=== PATIENT | female | born 1980 | race Caucasian/White ===

== ENCOUNTER → 2018-01-16 08:29 | Outpatient (CLI) | payer BC, SELFPAY ==
[2018-01-16 10:49] LABS: AST(SGOT) 12 U/L (15-37); Alanine Aminotransfer ALT/SGPT 26 U/L (13-56); Albumin, Serum 3.5 g/dL (3.2-5.0); Alkaline Phosphatase 87 U/L (45-117); Anion Gap 5 (5-15); BUN 12 mg/dL (7-18); BUN/Creat Ratio 16.8 RATIO (10-20); Calcium,Total 8.3 mg/dL (8.5-10.1); Chloride 107 mmol/L (98-107); Cholesterol 158 mg/dL (200); Creatinine, Serum 0.72 mg/dL (0.55-1.02); EST Glomerular Filtration Rate 96 mL/min (>60); Est Glom Filt Rate - Afr Amer 116 mL/min (>60); Globulin 3.5 g/dL (2.2-4.2); Glucose 114 mg/dL (74-106); High Density Lipoprotein 36 mg/dL; Potassium 3.8 mmol/L (3.5-5.1); Sodium Level 140 mmol/L (136-145); Triglycerides 85 mg/dL; Very Low Density Lipoprotein 17 mg/dL (5-40)
[2018-01-17 08:53] LABS: Vitamin B12 534 pg/mL (211-911); Vitamin D,25 Hydroxy 33.6 ng/mL (29.95-100.01)
== END ==
PROVIDERS: Family Provider Family Medicine; PCP Family Medicine; Visit Provider Family Medicine
DX: Z00.00 Encounter for general adult medical examination without abnormal findings (principal); R73.01 Impaired fasting glucose; E55.9 Vitamin D deficiency, unspecified; E53.8 Deficiency of other specified B group vitamins
CPT/HCPCS: 36415; 80053; 80061; 82306; 82607

== ENCOUNTER 2021-07-03 23:33 | Inpatient (IN) | payer BC, SELFPAY ==
[2021-07-03 23:33] VITALS: BP 194/96; PULSE 77; RESP 15; TEMP 37.1; O2SAT 99; BMI 35.5
--- NOTE | 2021-07-04 00:07 | US_ITS ---
STUDY: ABDOMINAL ULTRASOUND - RIGHT UPPER QUADRANT REASON FOR VISIT: Female, 41 years old right upper quadrant abdominal pain TECHNIQUE: Ultrasound evaluation of the right upper quadrant was performed with real-time and static gibbs-scale imaging. TECHNICAL QUALITY: Adequate. COMPARISON: None. FINDINGS: Liver: The liver measures 19.6 cm. There is moderate diffuse homogeneous hyperechogenicity of the liver parenchyma. Normal echotexture. The bile ducts are within normal limits. There is hepatic color flow. The direction of portal flow is hepatopetal. There is no demonstrated mass lesion. Gallbladder: Mild gallbladder distention.. The gallbladder wall measures 3 mm. There is a positive sonographic Ramos''s sign. There is no pericholecystic fluid. Multiple intraluminal stones. Common Bile Duct (C.B.D.): The common bile duct measures 5 mm. Pancreas: Visualized pancreas is normal. There is obscuration of the tail due to overlying bowel gas. There is no pancreatic fluid. Right Kidney: The right kidney measures 12.4 x 5.5 x 4.9 cm. The right cortex measures 1.7 cm. There is no demonstrated renal mass or cyst. Mild hydronephrosis. No nephrolithiasis. US/Gallbladder IMPRESSION: 1. Cholelithiasis with borderline wall thickening and positive sonographic Ramos''s sign but without pericholecystic fluid, suggesting an early acute cholecystitis. 2. Mild right sided hydronephrosis. 3. Nonvisualization of the pancreatic tail due to overlying bowel gas. 4. Fatty infiltration of the liver. Electronically Signed: Chritsopher Zuniga MD at 1:32 EST Tel , Service support ,
--- NOTE | 2021-07-04 00:22 | EDS_ITS ---
HPI HPI - GI History of Present Illness Chief Complaint: Abd Pain Narrative Narrative: 38-year-old female presenting with right upper quadrant pain. This started abruptly prior to arrival. Patient states her last meal was at about 730 and she ate chicken, mashed potatoes with gravy, noodles. She states that her father ate the same exact meal and does not have any symptoms. Patient does have a gallbladder and is concerned this is her gallbladder. She has not had a fever. She does have nausea. She denies abdominal pain elsewhere. No history of kidney stones. Patient is status post hysterectomy and has no concern for . She states that she does have von Willebrand's disease. [facility] Medical History Von Willebrand disease Home Medications No Known/Unobtainable [No Known Home Medications] 10/17/15 [History Last Taken Unknown] Allergy/AdvReac Type Severity Reaction Status Date / Time codeine Allergy Hives Verified 07/03/21 23:42 acetaminophen [From Percocet] AdvReac Other Verified 07/03/21 23:43 morphine AdvReac Other Verified 07/03/21 23:42 oxycodone [From Percocet] AdvReac Other Verified 07/03/21 23:43 Surgical History H/O hysterectomy for benign disease H/O hysterectomy for benign disease History of History of rhinoplasty [place] teeth extracted Social History Smoking Status: Never smoker ROS [facility] ED Constitutional Constitutional ED: Denies fever(s) or sweats ENT ENT ED: Denies rhinorrhea or sore throat Cardiovascular Cardiovascular: Denies chest pain or palpitations Respiratory/Chest Respiratory/Chest: Denies cough, dyspnea or sputum Gastrointestinal Gastrointestinal: Reports abdominal pain and nausea; Denies constipation, diarrhea or vomiting Genitourinary Genitourinary ED: Denies dysuria or hematuria Musculoskeletal Musculoskeletal: Denies arthralgias or myalgias Integumentary Denies abscess or rash Neurologic Neurologic: Denies headache(s) or paresthesias EXAM Physical Exam Const Vital Signs: 07/03/21 23:33 Temperature 98.7 F Temperature Source Temporal Pulse Rate 77 Respiratory Rate 15 Blood Pressure 194/96 H Blood Pressure Mean 128 Pulse Ox 99 Oxygen Delivery Method Room Air Positive obese General Appearance ED: other Appears to be in pain holding her right upper ; Negative for pallor Nutritional Appearance: obese HEENT Reports moist mucous membranes normocephalic and atraumatic Eyes PERRL and EOMs intact bilaterally Cardio regular rate and regular rhythm GI Palpation: tender Ramos's sign Neuro Sensorium / Orientation: alert and oriented to person Psych mental status grossly normal and thought process normal Skin General Skin Exam: Negative for jaundice or pallor MDM MDM MDM Narrative Medical decision making narrative: Patient presented with right upper quadrant pain. Patient refused pain medication because she does not like this. She does appear to be in pain. Patient CBC shows she is a leukocytosis of 13.3. Hemoglobin 15.7 hematocrit 47.3, platelets 314. CMP shows slight hypokalemia at 3.1 as well as a slight increase in her alkaline phosphatase at 119. Urinalysis negative for infection. Right upper quadrant ultrasound shows concern for acute cholecystitis. I did discuss case with Dr. Hyatt who is amenable to admit the patient. Impression: 1. acute cholecystitis Lab Data Attestation: I reviewed the patient's lab results. Labs: Laboratory Results - last 24 hr 07/03/21 07/03/21 07/03/21 23:59 23:59 23:59 WBC 13.3 H RBC 5.21 Hgb 15.7 H Hct 47.3 H MCV 90.8 MCH 30.1 MCHC 33.2 RDW Std Deviation 44.6 H RDW Coeff of Vasquez 13.2 Plt Count 314 MPV 10.8 Immature Gran % (Auto) 0.600 Neut % (Auto) 58.6 Lymph % (Auto) 28.5 [place] % (Auto) 9.3 Eos % (Auto) 2.3 Baso % (Auto) 0.7 Absolute Neuts (auto) 7.8 H Absolute Lymphs (auto) 3.77 Nucleated RBC % 0 Sodium 140 Potassium 3.1 L Chloride 103 Carbon Dioxide 30.0 Anion Gap 7 BUN 14 Creatinine 0.88 Estim Creat Clear Calc 77.17 Est GFR (MDRD) Af Amer 90 Est GFR (MDRD) Non-Af 74 BUN/Creatinine Ratio 15.8 Glucose 139 H Calcium 9.2 Total Bilirubin 0.30 AST 17 ALT 20 Alkaline Phosphatase 119 H Total Protein 7.4 Albumin 3.5 Globulin 3.9 Albumin/Globulin Ratio 0.9 Lipase 236 Urine Color Yellow Urine Clarity Sl. Cloudy Urine pH 7.0 Ur Specific [place] 1.010 Urine Protein 15 H Urine Glucose (UA) Normal Urine Ketones Negative Urine Occult Blood 10 H Urine Nitrite Negative Urine Bilirubin Negative Urine Urobilinogen Normal Ur Leukocyte Esterase Negative Urine RBC 0 SEEN Urine WBC 0-5 SEEN Ur Squamous Epith Cells 0 SEEN Amorphous Sediment 3+ Urine Bacteria 1+ Urine Mucus 0 SEEN Radiography Diagnostic Testing: Clinical Impression(s) from Imaging Studies Gallbladder Ultrasound 07/04/21 00:07 IMPRESSION: 1. Cholelithiasis with borderline wall thickening and positive sonographic Ramos''s sign but without pericholecystic fluid, suggesting an early acute cholecystitis. 2. Mild right sided hydronephrosis. 3. Nonvisualization of the pancreatic tail due to overlying bowel gas. 4. Fatty infiltration of the liver. Electronically Signed: Christopher Zuniga MD at 1:32 EST Tel , Service support , Discharge Plan Triage Chief Complaint: Abd Pain ED Provider: Corky Avalos Dx/Rx/DC Orders Primary Care Provider: Lamberto Wagner
[2021-07-04 00:26] LABS: Absolute Lymphocyte Count 3.77 X10^3/uL (0.83-4.51); Absolute Neutrophil Count 7.8 X10^3/uL (2.0-7.7); Basophil# 0.09 X10^3/uL; Basophil% 0.7 % (0-1); Eosinophils% 2.3 % (0-5); Hematocrit 47.3 % (37-47); Hemoglobin 15.7 g/dL (12.0-15.0); Lymphocyte # 3.77 X10^3/ul (0.83-4.51); Lymphocyte % 28.5 % (19-41); Mean Corp Hgb Conc 33.2 g/dL (32-36); Mean Corpuscular Hgb 30.1 pg (27.0-32.0); Mean Corpuscular Volume 90.8 fL (81-99); Mean Platelet Vol. 10.8 fl (6.2-12.0); Monocyte# 1.23 X10^3/uL; Monocyte% 9.3 % (0-10); NRBC Flagged by Analyzer 0 % (0-5); Neutrophil # 7.78 X10^3/uL (2.7-7.7); Neutrophil % 58.6 % (47-70); Platelet Count 314 K/mm3 (150-450); RBC Distribution Width CV 13.2 % (11.6-14.6); RBC Distribution Width SD 44.6 fl (35.1-43.9); Red Blood Count 5.21 M/mm3 (4.2-5.4); White Blood Count 13.3 K/mm3 (4.4-11.0)
[2021-07-04 00:36] LABS: ALB/GLOB Ratio 0.9 RATIO (0.9-2.4); AST(SGOT) 17 U/L (15-37); Alanine Aminotransfer ALT/SGPT 20 U/L (13-56); Albumin, Serum 3.5 g/dL (3.2-5.0); Alkaline Phosphatase 119 U/L (45-117); Anion Gap 7 (5-15); BUN 14 mg/dL (7-18); BUN/Creat Ratio 15.8 RATIO (10-20); Calcium,Total 9.2 mg/dL (8.5-10.1); Chloride 103 mmol/L (98-107); Creatinine, Serum 0.88 mg/dL (0.55-1.02); EST Glomerular Filtration Rate 74 mL/min (>60); Est Glom Filt Rate - Afr Amer 90 mL/min (>60); Estimated Creatinine Clearance 77.17 ml/min; Globulin 3.9 g/dL (2.2-4.2); Glucose 139 mg/dL (74-106); Lipase 236 U/L (73-393); Mucous, Urine 0 SEEN /hpf (<or=2+); Potassium 3.1 mmol/L (3.5-5.1); Protein, Total 7.4 g/dL (6.4-8.2); Red Blood Cells-Urine 0 SEEN /hpf (0-5); Sodium Level 140 mmol/L (136-145); Squamous Epithelial Cells - UA 0 SEEN /hpf (5-10)
[2021-07-04 00:52] LABS: Color, Urine Yellow (Yellow); Glucose, Dipstick Normal (Normal); Ketone-Dipstick Negative (Negative); Leukocyte Esterase-Dipstick Negative /ul (Negative); Nitrite-Dipstick Negative (Negative); Occult Blood-Urine 10 /ul (Negative); Protein-Dipstick 15 mg/dl (Negative); Urine Bilirubin Dipstick Negative (Negative); Urine Clarity Sl. Cloudy (Clear); Urine Urobilinogen Normal (Normal)
[2021-07-04 01:10] LABS: Amorphous Sediment 3+; Bacteria 1+ /hpf (None Seen); White Blood Cells 0-5 SEEN /hpf (0-5)
[2021-07-04 02:26] VITALS: BP 168/86; PULSE 82; PULSE 84; RESP 17; TEMP 36.9; O2SAT 97
[2021-07-04 02:34] VITALS: BP 146/76
--- NOTE | 2021-07-04 02:43 | ED.RN ---
Patient concerned with staying overnight on her own because of her bleeding disorder and wanted to leave. Discussed with patient and other staff, including charge nurse, and this nurse, and patient will stay.
--- NOTE | 2021-07-04 03:00 | PCS.PANDOC ---
PANDEMIC DOCUMENTATION INITIATED: Date: 03/15/2021 Time: 1900 Emergency documentation initiated 07/04/21 @ 0300
[2021-07-04 03:03] VITALS: BP 157/83; PULSE 78; RESP 16; TEMP 36.8; O2SAT 97
[2021-07-04 03:05] VITALS: BMI 36.8
[2021-07-04] MEDS: Lactated Ringers 1,000 ML 120 ML IV (03:47)
[2021-07-04] MEDS: Potassium Chloride 10mEq/100mL 10 MEQ/100 ML IV.SOLN. 100 MEQ IV BOLUS (07:48)
[2021-07-04 07:59] VITALS: BP 168/82; PULSE 72; RESP 16; TEMP 36.8; O2SAT 99
--- NOTE | 2021-07-04 09:08 | NURSING ---
spoke with [facility] concerning consult
[2021-07-04] MEDS: Potassium Chloride 10mEq/100mL 10 MEQ/100 ML IV.SOLN. 75 MEQ IV BOLUS (09:14)
--- NOTE | 2021-07-04 09:38 | PCM.HP.STD ---
HPI - General General Date of Admission: 07/04/21 HPI Narrative GAYLE PARDO, is a 41 F who presents with severe RUQ abdominal pain to [facility] ED. This came on suddenly yesterday. She also complains of nausea. She denies jaundice. Workup reveals US GB - acute cholecystitis, cholelithiasis Patient refuses any narcotic medications and seen writhing in pain in the ED. Patient with Von Willibrands disease - she states that one of her surgeries had complications of persistent bleeding [facility] Medical History (Updated 07/04/21 @ 09:[address] Isaura Hyatt MD) Acute cholecystitis Von Willebrand disease Home Medications No Known/Unobtainable [No Known Home Medications] 10/17/15 [History Last Taken Unknown] Allergy/AdvReac Type Severity Reaction Status Date / Time codeine Allergy Hives Verified 07/03/21 23:42 acetaminophen [From Percocet] AdvReac Other Verified 07/03/21 23:43 morphine AdvReac Other Verified 07/03/21 23:42 oxycodone [From Percocet] AdvReac Other Verified 07/03/21 23:43 Surgical History H/O hysterectomy for benign disease H/O hysterectomy for benign disease History of History of rhinoplasty [place] teeth extracted Social History Smoking Status: Never smoker ROS Constitutional Constitutional: Denies fever(s) Gastrointestinal Gastrointestinal: Reports abdominal pain; Denies hematochezia Genitourinary Genitourinary: Denies hematuria Musculoskeletal Musculoskeletal: Reports difficulty walking; Denies joint pain Integumentary Integumentary: Denies jaundice Neurologic Neurologic: Denies abnormal gait Hematologic/Lymphatic Hematologic/Lymphatic: Reports easy bleeding and easy bruising Vital Signs Vital Signs Vital Signs: 07/03/21 23:33 07/04/21 02:26 07/04/21 02:34 Temperature 98.7 F 98.4 F Temperature Source Temporal Temporal Pulse Rate 77 84 Respiratory Rate 15 17 Respiratory Effort Respiratory Depth Respiratory Pattern Blood Pressure 194/96 H 168/86 H 146/76 H Blood Pressure Mean 128 113 99 Blood Pressure Source Blood Pressure Position Blood Pressure Location Pulse Ox 99 97 Oxygen Delivery Method Room Air Room Air 07/04/21 02:54 07/04/21 03:03 07/04/21 07:59 Temperature 98.2 F 98.2 F Temperature Source Oral Oral Pulse Rate 78 72 Respiratory Rate 16 16 Respiratory Effort Normal Normal Respiratory Depth Normal Respiratory Pattern Normal Blood Pressure 157/83 H 168/82 H Blood Pressure Mean 107 110 Blood Pressure Source Monitor Monitor Blood Pressure Position Semi-Fowlers Semi-Fowlers Blood Pressure Location Left Arm Right Arm Pulse Ox 97 99 Oxygen Delivery Method Room Air Room Air Weight Weight: 103.4 kg Body Mass Index (BMI) 36.8 Physical Exam Const oriented x3 Resp normal respiratory effort Cardio regular rate GI GI Narrative: abdomen is soft and obese, tender in the RUQ with positive Ramos's Extremity Negative for no clubbing, cyanosis or edema Results Lab / Micro Data Result Diagrams: 07/03/21 23:59 07/03/21 23:59 Labs: Laboratory Results - last 24 hr 07/03/21 23:59: WBC 13.3 H, RBC 5.21, Hgb 15.7 H, Hct 47.3 H, MCV 90.8, MCH 30.1, MCHC 33.2, RDW Std Deviation 44.6 H, RDW Coeff of Vasquez 13.2, Plt Count 314, MPV 10.8, Immature Gran % (Auto) 0.600, Neut % (Auto) 58.6, Lymph % (Auto) 28.5, [place] % (Auto) 9.3, Eos % (Auto) 2.3, Baso % (Auto) 0.7, Absolute Neuts (auto) 7.8 H, Absolute Lymphs (auto) 3.77, Nucleated RBC % 0 07/03/21 23:59: Sodium 140, Potassium 3.1 L, Chloride 103, Carbon Dioxide 30.0, Anion Gap 7, BUN 14, Creatinine 0.88, Estim Creat Clear Calc 77.17, Est GFR (MDRD) Af Amer 90, Est GFR (MDRD) Non-Af 74, BUN/Creatinine Ratio 15.8, Glucose 139 H, Calcium 9.2, Total Bilirubin 0.30, AST 17, ALT 20, Alkaline Phosphatase 119 H, Total Protein 7.4, Albumin 3.5, Globulin 3.9, Albumin/Globulin Ratio 0.9, Lipase 236 07/03/21 23:59: Urine Color Yellow, Urine Clarity Sl. Cloudy, Urine pH 7.0, Ur Specific [place] 1.010, Urine Protein 15 H, Urine Glucose (UA) Normal, Urine Ketones Negative, Urine Occult Blood 10 H, Urine Nitrite Negative, Urine Bilirubin Negative, Urine Urobilinogen Normal, Ur Leukocyte Esterase Negative, Urine RBC 0 SEEN, Urine WBC 0-5 SEEN, Ur Squamous Epith Cells 0 SEEN, Amorphous Sediment 3+, Urine Bacteria 1+, Urine Mucus 0 SEEN Radiology Impression Gallbladder Ultrasound 07/04/21 00:07 IMPRESSION: 1. Cholelithiasis with borderline wall thickening and positive sonographic Ramos''s sign but without pericholecystic fluid, suggesting an early acute cholecystitis. 2. Mild right sided hydronephrosis. 3. Nonvisualization of the pancreatic tail due to overlying bowel gas. 4. Fatty infiltration of the liver. Electronically Signed: Christopher Zuniga MD at 1:32 EST Tel , Service support , Assessment & Plan Assessment/Plan (1) Acute cholecystitis: PLAN: Patient with intractable pain as she does not want to take any narcotics. I have explained to her that toradol is not a narcotic and she can take this. admit for consideration for surgery IV antibiotics, IV antacids, sips of clear liquids - I had planned surgery for today, however, patient with Von Willibrand's disease with history of operative bleeding, will consult hematology but they will not see her until this afternoon
[2021-07-04] MEDS: Potassium Chloride 10mEq/100mL 10 MEQ/100 ML IV.SOLN. 85 MEQ IV BOLUS ×2 (10:38→13:34)
[2021-07-04] MEDS: 0.9% Normal Saline 1,000 ML 125 ML IV ×2 (10:39→17:42)
--- NOTE | 2021-07-04 11:00 | CASEMGMT ---
RNCM Progress Note: In Network Tertiary Hospitals: [facility], [facility], [facility], , [facility], [facility], [place], [place], [place]. Cristiane Kline, GENOCM
--- NOTE | 2021-07-04 11:38 | NURSING ---
pt upset that she needs to be transferred. pt upset about the cost of an ambulance and [address] angulo notified and case management notifed of pt concerns. dr angulo spoke with pt and gave pt option to transfer, or sign out ama. pt and choose to transfer to [facility].
[2021-07-04] MEDS: Ketorolac 30 MG/ML Syringe IV ×3 (11:42→23:54)
--- NOTE | 2021-07-04 13:20 | PN_ITS ---
Progress Note Discussed with hematology, this hospital doesn't have Factor 8, therefore, it would not be safe for patient to have major surgery at this [facility]. I have explained this to the patient and her . Awaiting transfer to [facility].
[2021-07-04 13:53] VITALS: BP 143/81; PULSE 71; RESP 16; TEMP 37.1; O2SAT 98
[2021-07-04 20:00] VITALS: BP 161/83; PULSE 103; RESP 16; TEMP 37; O2SAT 99
[2021-07-05 02:00] VITALS: BP 147/87; PULSE 73; RESP 16; TEMP 36.9; O2SAT 98
[2021-07-05] MEDS: 0.9% Normal Saline 1,000 ML 125 ML IV (05:08)
--- NOTE | 2021-07-05 07:43 | NURSING ---
PT TALKING ON TELEPHONE. OVERHEARD PT SAYING I'M GOING TO BE LEAVING HERE IN A LITTLE BIT
[2021-07-05 07:47] VITALS: BP 170/106; PULSE 77; RESP 18; TEMP 36.8; O2SAT 96
--- NOTE | 2021-07-05 08:40 | NURSING ---
PT IV SITE RFA RED, TENDER - IV DC'D. PT REFUSES IV RESTART @ THIS TIME DUE TO HER SAYING SHE MAY POSSIBLY BE LEAVING AMA. PT STATES SHE HAS SOME PHONE CALLS TO MAKE
--- NOTE | 2021-07-05 08:45 | PCM.PN.SRG ---
Subjective Subjective patient states that her pain is alot less this morning still awaiting transfer to [facility] due to Von Willibrands disease precluding surgery at this hospital Objective Data Objective Data Vital Signs: Vital Signs Temp Pulse Resp BP Pulse Ox 98.2 F 77 18 170/106 H 96 07/05/21 07:47 07/05/21 07:47 07/05/21 07:47 07/05/21 07:47 07/05/21 07:47 Oxygen Delivery Method Room Air Weight: 103.4 kg Body Mass Index (BMI) 36.8 Intake & Output: Intake and Output for Last 24 Hours 07/03/21 07/04/21 07/05/21 23:59 23:59 23:59 Intake Total 2407.25 / 2407.25 1432.71 / 1432.71 Balance 2407.25 / 2407.25 1432.71 / 1432.71 Lab / Micro Data Result Diagrams: 07/03/21 23:59 07/03/21 23:59 Physical Exam Const alert and oriented x3 General Appearance: cooperative Resp normal respiratory effort Effort and Inspection: able to speak in complete sentences GI GI Narrative: abdomen appears benign Assessment & Plan Assessment/Plan (1) Acute cholecystitis: PLAN: patient may have passed stone, though LFTs were not that elevated, versus the IV antibiotics has helped she is awaiting transfer to [facility]
--- NOTE | 2021-07-05 08:48 | NURSING ---
PT CALLED THIS NURSE INTO HER ROOM TO SPEAK WITH WYATT - HEAD OF HEMATOLOGY DEPARTMENT @ [facility] - WHOM SHE HAD CALLED. WYATT STATED PT COULD BE GIVEN DESMOPRESSIN IF FACTOR 8 UNAVAILABLE IF NECESSARY FOR SURGERY. I SPOKE WITH WYATT & TOLD HER THE PHYSICIAN THERE WOULD NEED TO SPEAK TO DR RIOS ABOUT THIS. WYATT STATES WILL HAVE PHYSICIAN CALLED [facility] & SPEAK WITH DR RIOS.
--- NOTE | 2021-07-05 12:05 | NURSING ---
RECEIVED CALL FROM DR RIOS WITH UPDATE. STATES SHE TOLD THE PT SHE DOES NOT FEEL COMFORTABLE PERFORMING THE PROCEDURE HERE. MS WILL SPEAK WITH DR ZARATE (BLEND TECHNICIAN TODAY) & SEE WHAT HIS THOUGHTS ARE. I TOLD THE PT THIS INFORMATION. PT ANGRY, STATING SHE IS LEAVING AMA. STATES SHE SPOKE WITH [facility]AT[facility] DEPART[facility] & THEY STATED THEY WOULD MAKE THEIR ER AWARE THAT SHE IS COMING THERE TODAY.
--- NOTE | 2021-07-05 12:23 | NURSING ---
PT STATES WILL SIGN AMA PAPER. ASKS WHEN WILL THE OTHER SURGEON BE IN TO SEE ME, I EXPLAINED THAT I DID NOT KNOW, WOULD DEPEND ON HIS SCHEDULE, ETC. PT STATES WELL, HE PROBABLY WON'T CARE EITHER. I EXPLAINED @ THIS TIME OF DAY, EVEN AFTER HE REVIEWED HER CHART, PROBABLY WOULD NOT BE ABLE TO GET ON THE SURGERY SCHEDULE TODAY. PT STATES THEN I WILL JUST SIT HERE FOR ANOTHER SAY WITH NOTHING BEING DONE. I'M TIRED OF WAITING. I'M LEAVING. DR RIOS MADE AWARE OF SAME.
== END 2021-07-05 12:16 | disposition left against medical advice (07) | DRG 445 ==
LOC: ED 07-04 00:20 → MS3 07-04 02:09
PROVIDERS: Admitting Provider Surgery; Emergency Provider Student in an Organized Health Care Education/Training Program; PCP Family Medicine; Visit Provider Surgery
DX: K80.00 Calculus of gallbladder with acute cholecystitis without obstruction (principal); D68.0 Von Willebrand disease; E66.9 Obesity, unspecified; Z68.36 Body mass index [BMI] 36.0-36.9, adult
CPT/HCPCS: 76705; 80053; 81001; 83690; 85025; 99283; J7030; J7040; J7120; A4216

== ENCOUNTER → 2022-08-03 | Outpatient (CLI) | payer BC, SELFPAY ==
[2022-08-03 10:07] LABS: Hematocrit 49.1 % (37-47); Hemoglobin 15.8 g/dL (12.0-15.0); Mean Corp Hgb Conc 32.2 g/dL (32-36); Mean Corpuscular Hgb 30.1 pg (27.0-32.0); Mean Corpuscular Volume 93.5 fL (81-99); Mean Platelet Vol. 11.5 fl (6.2-12.0); Platelet Count 296 K/mm3 (150-450); RBC Distribution Width CV 13.6 % (11.6-14.6); Red Blood Count 5.25 M/mm3 (4.2-5.4); White Blood Count 9.5 K/mm3 (4.4-11.0)
[2022-08-03 10:36] LABS: Anion Gap 5 (5-15); BUN 13 mg/dL (7-18); Calcium,Total 9.1 mg/dL (8.5-10.1); Chloride 107 mmol/L (98-107); Cholesterol 191 mg/dL (200); Creatinine, Serum 0.69 mg/dL (0.55-1.02); EST Glomerular Filtration Rate 99 mL/min (>60); Est Glom Filt Rate - Afr Amer 119 mL/min (>60); Glucose 119 mg/dL (74-106); High Density Lipoprotein 45 mg/dL; Potassium 3.9 mmol/L (3.5-5.1); Sodium Level 141 mmol/L (136-145); Triglycerides 112 mg/dL; Very Low Density Lipoprotein 22 mg/dL (5-40); Vitamin B12 407 pg/mL (211-911)
== END | disposition home or self-care (01) ==
LOC: MTLAB 07:31
PROVIDERS: PCP Family Medicine; Referring Provider Family Medicine; Visit Provider Family Medicine
DX: Z13.1 Encounter for screening for diabetes mellitus (principal); E53.8 Deficiency of other specified B group vitamins; E55.9 Vitamin D deficiency, unspecified; Z13.220 Encounter for screening for lipoid disorders
CPT/HCPCS: 36415; 80048; 80061; 82306; 82607; 85027

== ENCOUNTER → 2022-08-12 | Outpatient (CLI) | payer BC, SELFPAY ==
[2022-08-12 12:57] LABS: Red Blood Cells-Urine 0 SEEN /hpf (0-5); White Blood Cells 0 SEEN /hpf (0-5)
[2022-08-12 15:18] LABS: Absolute Lymphocyte Count 2.05 X10^3/uL (0.83-4.51); Absolute Neutrophil Count 4.8 X10^3/uL (2.0-7.7); Basophil# 0.07 X10^3/uL; Basophil% 0.9 % (0-1); Eosinophil# 0.17 X10^3/uL; Eosinophils% 2.2 % (0-5); Hematocrit 47.5 % (37-47); Hemoglobin 15.3 g/dL (12.0-15.0); Lymphocyte # 2.05 X10^3/ul (0.83-4.51); Lymphocyte % 26.3 % (19-41); Mean Corp Hgb Conc 32.2 g/dL (32-36); Mean Corpuscular Hgb 29.9 pg (27.0-32.0); Mean Platelet Vol. 11.6 fl (6.2-12.0); Monocyte% 7.7 % (0-10); NRBC Flagged by Analyzer 0 % (0-5); Neutrophil # 4.84 X10^3/uL (2.7-7.7); Neutrophil % 62.1 % (47-70); Platelet Count 302 K/mm3 (150-450); RBC Distribution Width CV 13.8 % (11.6-14.6); RBC Distribution Width SD 47.1 fl (35.1-43.9); Red Blood Count 5.11 M/mm3 (4.2-5.4); White Blood Count 7.8 K/mm3 (4.4-11.0)
[2022-08-12 15:31] LABS: Glucose, Dipstick Normal (Normal); Ketone-Dipstick 5 mg/dl (Negative); Leukocyte Esterase-Dipstick Negative /ul (Negative); Nitrite-Dipstick Negative (Negative); Occult Blood-Urine 10 /ul (Negative); Protein-Dipstick Negative (Negative); Specific Gravity, Urine 1.025 (1.002-1.030); Urine Bilirubin Dipstick Negative (Negative); Urine Urobilinogen Normal (Normal)
[2022-08-12 15:49] LABS: AST(SGOT) 8 U/L (15-37); Alanine Aminotransfer ALT/SGPT 23 U/L (13-56); Albumin, Serum 3.5 g/dL (3.2-5.0); Alkaline Phosphatase 81 U/L (45-117); Bilirubin, Direct 0.13 mg/dL (0.00-0.30); Globulin 3.2 g/dL (2.2-4.2); Protein, Total 6.7 g/dL (6.4-8.2)
[2022-08-12 15:52] LABS: Color, Urine Yellow (Yellow); Urine Clarity Clear (Clear)
[2022-08-12 16:13] LABS: Bacteria RARE /hpf (None Seen); Mucous, Urine RARE /hpf (<or=2+); Squamous Epithelial Cells - UA 0-5 SEEN /hpf (5-10)
[2022-08-15 22:57] LABS: Erythropoietin 6.1 mIU/mL (2.6-18.5)
== END | disposition home or self-care (01) ==
LOC: MTLAB 12:47
PROVIDERS: PCP Family Medicine; Referring Provider Family Medicine; Visit Provider Family Medicine
DX: D58.2 Other hemoglobinopathies (principal)
CPT/HCPCS: 36415; 80076; 81001; 82668; 85025

== ENCOUNTER 2025-07-26 13:38 | Emergency (ER) | payer BC, SELFPAY ==
[2025-07-26 13:38] VITALS: PULSE 81; RESP 16; TEMP 36.9; O2SAT 98; BMI 34.8
--- NOTE | 2025-07-26 14:08 | CT_ITS ---
EXAM: CT Abdomen and Pelvis With Intravenous Contrast CLINICAL INDICATION: RIGHT LOWER QUADRANT ABDOMINAL PAIN. TECHNIQUE: Axial computed tomography images of the abdomen and pelvis with intravenous contrast. This CT exam was performed using one or more of the following dose reduction techniques: automated exposure control, adjustment of the mA and/or kV according to patient size, and/or use of iterative reconstruction technique. CONTRAST: 100 cc Omnipaque [id number] RADIATION DOSE: CTDIvol = 22 mGy, DLP = 1214 mGy-cm COMPARISON: No relevant prior studies available. FINDINGS: LUNG BASES: Unremarkable. No mass. No consolidation. MEDIASTINUM: Small esophageal hiatal hernia. ABDOMEN: LIVER: Fatty infiltration of the liver. GALLBLADDER AND BILE DUCTS: Gallbladder is surgically absent. No ductal dilation. PANCREAS: Unremarkable. No mass. No ductal dilation. SPLEEN: Unremarkable. No splenomegaly. ADRENALS: Unremarkable. No mass. KIDNEYS AND URETERS: Unremarkable. No stones within either kidney. No hydronephrosis. STOMACH AND BOWEL: Unremarkable. No obstruction. No mucosal thickening. PELVIS: APPENDIX: No findings to suggest acute appendicitis. BLADDER: Unremarkable. No mass. REPRODUCTIVE: Unremarkable as visualized. ABDOMEN and PELVIS: INTRAPERITONEAL SPACE: Unremarkable. No free air. No significant fluid collection. BONES/JOINTS: No acute fracture. No dislocation. SOFT TISSUES: Umbilical hernia containing fat. Left-sided lower abdomen ventral hernia containing fat. VASCULATURE: Unremarkable. No abdominal aortic aneurysm. LYMPH NODES: Unremarkable. No enlarged lymph nodes. CT/Abdomen/Pelvis W IV Cont ONLY IMPRESSION: 1. Small esophageal hiatal hernia. 2. Umbilical hernia containing fat. 3. Left-sided lower abdomen ventral hernia containing fat. 4. No obstructive uropathy. Reading Location: [id number]
--- OUTSIDE RECORDS SUMMARY | 2025-07-26 14:08 | XMS RPT_ITS | CCD ---
Author Organization [facility] CliniSyil Care Team Providers Care Developmental Mathematics Professor Name Role Phone RAGHUNATHAN, ROXANN Unavailable Unavailable PHYSICIAN, NONE Unavailable Unavailable RAGHUNATHAN, ROXANN Unavailable Unavailable PHYSICIAN, NONE Unavailable Unavailable RAGHUNATHAN, ROXANN Unavailable Unavailable PHYSICIAN, NONE Unavailable Unavailable Velma Mohan Primary Care Provider Michael Wagner MD Primary Care Provider Tania Scherer MD Unavailable Unavailable Dangelo Brooks MD Unavailable Lamberto Wagner Attending Unavailable Lamberto Wagner Referring Unavailable Lamberto Wagner Primary Care Unavailable Lamberto Wagner Attending Unavailable Lamberto Wagner Referring Unavailable Lamberto Wagner Primary Care Unavailable Michael Wagner MD Primary Care Provider Tania Scherer MD Unavailable Dangelo Brooks MD Unavailable Michael Wagner MD Primary Care Provider Tania Scherer MD Unavailable Dangelo Brooks MD Unavailable MICHAEL WAGNER Referring UnavailIMCHAEL Chowdhury Primary Care Unavailsherrie e DANGELO BROOKS Attending Un available MICHAEL WAGNER Primary Care Unavailabl e IVETT DO Attending Unavailable DANGELO BROOKS Referring Un available MICHAEL WAGNER Primary Care Unavailsherrie e DANGELO BROOKS Referring Un available DANGELO BROOKS Attending Un available Allergies Allergy Classification Reported Allergen(s) Allergy Type Date of Onset Reaction(s) Facility (10 sources) Codeine Drug Allergy 05-14-2008 [facility] (8 sources) Ibuprofen Drug Allergy 05-14-[address] [facility] (3 sources) Acetaminophen Drug Allergy 07-03-2021 Other [facility] (8 sources) Morphine Drug Allergy 07-03-2021 Other [facility] (8 sources) oxyCODONE Drug Allergy 07-03-2021 Other [facility] (1 source) Acetaminophen Drug Allergy 07-03-2021 [facility] (1 source) Codeine Drug Allergy 07-03-2021 [facility] (1 source) Morphine Drug Allergy 07-03-2021 [facility] (1 source) oxyCODONE Drug Allergy 07-03-2021 [facility] (5 sources) Acetaminophen Drug Allergy 07-03-2021 [facility] Medications Current Medications Medication Drug Class(es) Dates Sig (Normalized) Sig (Original) tranexamic acid 650 mg oral tablet (5 sources) Antifibrinolytic Agent Start: 01-09-2023 take 2 tablets by mouth every eight hours as needed tranexamic acid 650 MG tablet Take 2 tablets by mouth every 8 hours as needed. Take 2 pills if bleeding, can continue every 8 hours up to 2 days (in total 12 pills) 60 tablet 3 01/09/2023 Active Completed/Discontinued Medications Medication Drug Class(es) Dates Sig (Normalized) Sig (Original) acetaminophen 325 mg oral tablet (1 source) Start: 05-14-2008 acetaminophen(TYL ENOL 325 MG TAB) as necessary 0 05/14/2008 Active Comment on above: as necessary 12 hr guaiFENesin 600 mg extended release oral tablet (1 source) Start: 05-21-2008 guaifenesin(MUCIN EX 600 MG TAB) Indications: Von Willebrand's disease (HCC) Take one(1) tablet twice daily. 0 05/21/2008 Active Comment on above: Take one(1) tablet t wice daily. Problems Active Problems Problem Classification Problem Date Documented Da te Episodic/Chronic Coagulation and hemorrhagic disorders (13 sources) von Willebrand disorder; Translations: [Von Willebrand disease] Onset: 05-21-2008 05-21-2008 Chronic Coagulation and hemorrhagic disorders (10 sources) Bleeds easily; Translations: [Hemorrhagic condition, unspecified] Onset: 01-25-2022 Episodic Other gastrointestinal disorders (1 source) Hemorrhagic diarrhea ; Translations: [Diarrhea, unspecified] Episodic Other nutritional; endocrine; and metabolic disorders (6 sources) Obese class I; Translations: [Obesity, unspecified] Onset: 07-20-2021 07-20-2021 Chronic Unclassified (1 source) Von willebrand disease, type 1; Translations: [Von willebrand disease, type 1] Onset: 02-03-2025 Unclassified (1 source) Von Willebrand disease, unspecified; Translations: [Von Willebrand disease, unspecified] Onset: 02-03-2025 Past or Other Problems Problem Classification Problem Date Documented Da te Episodic/Chronic Biliary tract disease (8 sources) Acute cholecystitis; Translations: [Acute cholecystitis] Onset: 07-05-2021 07-05-2021 Episodic Mood disorders (6 sources) Mood disorders Onset: 12-30-2021 Resolved: 02-03-2025 12-30-2021 Unclassified (1 source) Von willebrand disease, type 1; Translations: [Von willebrand disease, type 1] Onset: 04-11-2025 Unclassified (1 source) Von Willebrand disease, unspecified; Translations: [Von Willebrand disease, unspecified] Onset: 02-03-2025 Results Test Name Value Interpretation Reference Range Facility MISCELLANEOUS SENDOUTon 03-31 Miscellaneous Test Name Comprehensive Bleeding Disorder Panel (NGS with reflex to aCGH) Normal [facility] Comment on above: Order Comment: Added to specimen from 05/17/2024. Haritha from reference lab stated she spoke with provider who approved this test to be added to earlier specimen. Testing performed by [employer] [address] [address] Performed By: #### I [id number] #### [facility] (DEFAULT) [address] [place] [address] Miscellaneous Test Result SEE SCANNED RESULTS Normal [facility] Comment on above: Order Comment: Added to specimen from 05/17/2024. Haritha from reference lab stated she spoke with provider who approved this test to be added to earlier specimen. Testing performed by [facility] [address] [place] [id number] Result Comment: This is an appended report. These results have been appended to a previously preliminary verified report. Performed By: #### I [id number] #### [facility] (DEFAULT) [address] [place] [id number] REQUEST FOR [facility] SENDOUT Ordered By: Dawn Elkins on 04-11-2025 [facility] VWDB-SPECIAL COAGOrdered By: Nathanael Alexander on 02-04-2025 Coagulation factor VIII activity actual/normal Coag (PPP) [Relative time] 94 % [facility] Interpretation and review of laboratory results Normal [facility] Von Willebrand Factor GP1bM Activity 71 [facility] Comment on above: This test was developed and its performance characteristics determined by the [facility] at [facility]. It has not been cleared or approved by the FDA. The laboratory is regulated under CLIA as qualified to perform high-complexity testing. This test is used for clinical purposes. It should not be regarded as investigation or for research. vWf Ag actual/normal IA (PPP) [Relative mass conc] 70 % 50 - 180 % [facility] - Coagulationon 0 02-03-2025 aPTT Coag (PPP) [Time] 30.4 s [facility] No Panel Informationon 02-03 Interpretation and review of laboratory results Normal [facility] VWDB-ROUTINE COAGon 02-04-20 25 aPTT Coag (Bld) [Time] 30.4 s Normal 24.0-34.3 [facility] Comment on above: Performed By: #### L [id number] #### [facility] (DEFAULT) [address] [place] [id number] VWDB-SPECIAL COAGon 02-04-20 25 Factor VIII Activity 94 % Activity Normal 50-200 O [facility] Comment on above: Performed By: #### L [id number] #### [facility] (DEFAULT) [address] [place] [address] Von Willebrand Factor Antigen 70 % Normal 50-180 [facility] Comment on above: Performed By: #### L [id number] #### [facility] (DEFAULT) [address] [place] [address] Von Willebrand Factor GP1bM Activity 71 % Activity Normal 50-203 [facility] Comment on above: Result Comment: This test was developed and its performance characteristics determined by the [facility] at [facility]. It has not been cleared or approved by the FDA. The laboratory is regulated under CLIA as qualified to perform high-complexity testing. This test is used for clinical purposes. It should not be regarded as investigation or for research. Performed By: #### L [id number] #### [facility] (DEFAULT) [address] [place] [address] MISCELLANEOUS SENDOUTon 01-28 Miscellaneous Test Name VWD Type 2N Profile [facility] Miscellaneous Test Result SEE SCANNED RESULTS [facility] Testing performed by [employer]ing[facility] [address] [place], [place] [id number] [facility] MISCELLANEOUS SENDOUT BILLIN Vlad 02-08-2023 [facility] PLATELET FUNCTION TESTOrdere d By: Tim Farah on 01-09-2023 Interpretation and review of laboratory results Abnormal [facility] Platelet function (closure time) collagen+ADP induced (Bld) [Time] 115 High [facility] Platelet function (closure time) collagen+EPINEPHrine induced (Bld) [Time] 161 [facility] Platelet Function Interpretation The combination of an abnormal Collagen/ADP result in the presence of a normal Collagen/Epinephrin e value has not been well described. Clinical correlation is recommended. [facility] REQUEST FOR MISC LAB SENDOUT Ordered By: Aparna Kirkland on 01-09-2023 [facility] Erythropoietinon 08-16-2022 ERYTHROPOIETIN 6.1 mIU/mL Normal 2.6-18.5 [facility] Comment on above: Order Comment: Order Date: 08/12/22 Order Info: [id number] - MASON Result Comment: waygum UniCel DxI 800 Immunoassay System Values obtained with different assay methods or kits cannot be used interchangeably. Results cannot be interpreted as absolute evidence of the presence or absence of malignant disease. Performed at: [address] [id number] Sprinkler Worker: Raj Haq PhD, Phone: [phone] Performed By: #### L 400.0001, L100.0100, L500.3400, L3100.1350 #### [facility] [address] [place], [address] Absolute lymphocyte countOrd ered By: Dr. Wagner on 08-12-2022 Lymphocytes Auto (Unsp spec) [#/Vol] 2.05 10*3/uL 0.83-4.51 [facility] Basophil percentageOrdered B y: Dr. Wagner on 08-12-2022 Basophil percentage 0 SEEN /hpf 0-5 [facility] Basophils/100 WBC (Bld) 0.9 % 0-1 [facility] Bilirubin [Mass/Vol] 0.40 mg/dL 0.20-1.00 [facility] Comment on above: For patients on eltr ombopag therapy, use of Dimension [place]anza TBIL is not recommended. Eosinophils/100 WBC (Bld) 2.2 % 0-5 [facility] Neutrophils (Bld) [#/Vol] 4.8 10*3/uL 2.0-7.7 [facility] Neutrophils/100 WBC (Bld) 62.1 % 47-70 [facility] Protein [Mass/Vol] 6.7 g/dL 6.4-8.2 [facility] WBC (Bld) [#/Vol] 7.8 10*3/uL 4.4-11.0 [facility] Bilirubin Test strip Ql (U)O rdered By: Dr. Wagner on 08-12-2022 Bilirubin Ql (U) Negative Negative [facility] Blood erythrocytes count (nu mber/volume)Ordered By: Dr. Wagner on 08-12-2022 RBC (Bld) [#/Vol] 5.11 10*6/uL 4.2-5.4 [facility] Blood hemoglobin measurement (mass/volume)Ordered By: Dr. Wagner on 08-12-2022 Hemoglobin (Bld) [Mass/Vol] 15.3 g/dL 12.0-15.0 [facility] Blood lymphocytes/100 leukoc ytesOrdered By: Dr. Wagner on 08-12-2022 Lymphocytes/100 WBC (Bld) 26.3 % 19-41 [facility] Blood monocytes/100 leukocyt esOrdered By: Dr. Wagner on 08-12-2022 Monocytes/100 WBC (Bld) 7.7 % 0-10 [facility] Blood platelet mean volumeOr dered By: Dr. Wagner on 08-12-2022 Platelet mean volume (Bld) [Entitic vol] 11.6 fL 6.2-12.0 [facility] CBC W/Diff, Automatedon 07-31 Absolute Lymph 2.05 X10 3/uL Normal 0.83-4.51 [facility] Comment on above: Order Comment: Order Date: 08/12/22 Order Info: [id number] - CBCD Performed By: #### L 400.0001, L100.0100, L500.3400, L3100.1350 #### [facility] [address] [facility] [address] [place], [place], [id number] [phone] Absolute Neut 4.8 X10 3/uL Normal 2.0-7.7 [facility] Comment on above: Order Comment: Order Date: 08/12/22 Order Info: 0184-1 - CBCD Performed By: #### L 400.0001, L100.0100, L500.3400, L3100.1350 #### [facility] [address] [place], [address] Basophils/100 WBC (Bld) 0.9 % Normal 0-1 [facility] Comment on above: Order Comment: Order Date: 08/12/22 Order Info: 0184-1 - CBCD Performed By: #### L 400.0001, L100.0100, L500.3400, L3100.1350 #### [facility] [address] [place], [address] Eosinophils/100 WBC (Bld) 2.2 % Normal 0-5 [facility] Comment on above: Order Comment: Order Date: 08/12/22 Order Info: 0184-1 - CBCD Performed By: #### L 400.0001, L100.0100, L500.3400, L3100.1350 #### [facility] [address] [place], [address] Erythrocyte distribution width (RBC) [Ratio] 13.8 % Normal 11.6-14.6 [facility] Comment on above: Order Comment: Order Date: 08/12/22 Order Info: 0184-1 - CBCD Performed By: #### L 400.0001, L100.0100, L500.3400, L3100.1350 #### [facility] [address] [place], [address] Hematocrit (Bld) [Volume fraction] 47.5 % High 37-47 [facility] Comment on above: Order Comment: Order Date: 08/12/22 Order Info: 0184-1 - CBCD Performed By: #### L 400.0001, L100.0100, L500.3400, L3100.1350 #### [facility] [address] [place], [address] Hemoglobin (Bld) [Mass/Vol] 15.3 g/dL High 12.0-15.0 [facility] Comment on above: Order Comment: Order Date: 08/12/22 Order Info: 0184-1 - CBCD Performed By: #### L 400.0001, L100.0100, L500.3400, L3100.1350 #### [facility] [address] [place], [address] IG% 0.800 Normal 0.0-0.9 [facility] Comment on above: Order Comment: Order Date: 08/12/22 Order Info: 0184-1 - CBCD Result Comment: IG% - Immature Granulocytes (promyelocytes, myelocytes and metamyelocytes) > 1% indicates that a LEFT SHIFT is Present. Performed By: #### L 400.0001, L100.0100, L500.3400, L3100.1350 #### [facility] [address] [place], [address] Lymphocytes/100 WBC (Bld) 26.3 % Normal 19-41 [facility] Comment on above: Order Comment: Order Date: 08/12/22 Order Info: 0184-1 - CBCD Performed By: #### L 400.0001, L100.0100, L500.3400, L3100.1350 #### [facility] [address] [place], [address] MCH (RBC) [Entitic mass] 29.9 pg Normal 27.0-32.0 [facility] Comment on above: Order Comment: Order Date: 08/12/22 Order Info: 0184-1 - CBCD Performed By: #### L 400.0001, L100.0100, L500.3400, L3100.1350 #### [facility] [address] [place], [address] MCHC (RBC) [Mass/Vol] 32.2 g/dL Normal 32-36 [facility] Comment on above: Order Comment: Order Date: 08/12/22 Order Info: 0184-1 - CBCD Performed By: #### L 400.0001, L100.0100, L500.3400, L3100.1350 #### [facility] [address] [place], [address] MCV (RBC) [Entitic vol] 93.0 fL Normal 81-99 [facility] Comment on above: Order Comment: Order Date: 08/12/22 Order Info: 0184-1 - CBCD Performed By: #### L 400.0001, L100.0100, L500.3400, L3100.1350 #### [facility] [address] [place], [address] Monocytes/100 WBC (Bld) 7.7 % Normal 0-10 [facility] Comment on above: Order Comment: Order Date: 08/12/22 Order Info: 0184-1 - CBCD Performed By: #### L 400.0001, L100.0100, L500.3400, L3100.1350 #### [facility] [address] [place], [address] Neutrophils/100 WBC (Bld) 62.1 % Normal 47-70 [facility] Comment on above: Order Comment: Order Date: 08/12/22 Order Info: 0184-1 - CBCD Performed By: #### L 400.0001, L100.0100, L500.3400, L3100.1350 #### [facility] [address] [place], [address] Nucleated RBC (Bld) [#/Vol] 0 10*3/uL Normal 0-5 [facility] Comment on above: Order Comment: Order Date: 08/12/22 Order Info: 0184-1 - CBCD Performed By: #### L 400.0001, L100.0100, L500.3400, L3100.1350 #### [facility] [address] [place], [address] Platelet mean volume (Bld) [Entitic vol] 11.6 fL Normal 6.2-12.0 [facility] Comment on above: Order Comment: Order Date: 08/12/22 Order Info: 0184-1 - CBCD Performed By: #### L 400.0001, L100.0100, L500.3400, L3100.1350 #### [facility] [address] [place], [address] Platelets (Bld) [#/Vol] 302 10*3/uL Normal 150-450 [facility] Comment on above: Order Comment: Order Date: 08/12/22 Order Info: 0184-1 - CBCD Performed By: #### L 400.0001, L100.0100, L500.3400, L3100.1350 #### [facility] [address] [place], [address] RBC (Bld) [#/Vol] 5.11 10*6/uL Normal 4.2-5.4 [facility] Comment on above: Order Comment: Order Date: 08/12/22 Order Info: 0184-1 - CBCD Performed By: #### L 400.0001, L100.0100, L500.3400, L3100.1350 #### [facility] [address] [place], [address] RDW SD 47.1 fl High 35.1-43.9 [facility] Comment on above: Order Comment: Order Date: 08/12/22 Order Info: 0184-1 - CBCD Performed By: #### L 400.0001, L100.0100, L500.3400, L3100.1350 #### [facility] [address] [place], [address] WBC (Bld) [#/Vol] 7.8 10*3/uL Normal 4.4-11.0 [facility] Comment on above: Order Comment: Order Date: 08/12/22 Order Info: 0184-1 - CBCD Performed By: #### L 400.0001, L100.0100, L500.3400, L3100.1350 #### [facility] [address] [place], [address] Determination of erythrocyte mean corpuscular volume (MCV)Ordered By: Dr. Wagner on 08-12-2022 MCV (RBC) [Entitic vol] 93.0 fL 81-99 [facility] Direct bilirubinOrdered By: Dr. Wagner on 08-12-2022 Bilirubin.direct [Mass/Vol] 0.13 mg/dL 0.00-0.30 [facility] Hematocrit Auto (Bld) [Volum e fraction]Ordered By: Dr. Wagner on 08-12-2022 Hematocrit (Bld) [Volume fraction] 47.5 % 37-47 [facility] Ketones Test strip Ql (U)Ord ered By: Dr. Wagner on 08-12-2022 Ketones Ql (U) 5 mg/dl Negative [facility] - Chemistry and C hemistry - challengeOrdered By: Dr. Wagner on 08-12-2022 ALP [Catalytic activity/Vol] 81 U/L 45-117 [facility] ALT [Catalytic activity/Vol] 23 U/L 13-56 [facility] Globulin (S) [Mass/Vol] 3.2 g/dL 2.2-4.2 [facility] Laboratory - Hematology and Cell countsOrdered By: Dr. Wagner on 08-12-2022 Erythrocyte distribution width (RBC) [Entitic vol] 47.1 fL 35.1-43.9 [facility] Erythrocyte distribution width (RBC) [Ratio] 13.8 % 11.6-14.6 [facility] Immature granulocytes/100 WBC (Bld) 0.800 % 0.0-0.9 [facility] Comment on above: IG% - Immature Granu locytes (promyelocytes, myelocytes and metamyelocytes) > 1% indicates that a LEFT SHIFT is Present. MCH (RBC) [Entitic mass] 29.9 pg 27.0-32.0 [facility] Nucleated RBC/100 WBC (Bld) [Ratio] 0 % 0-5 [facility] Liver Profileon 08-12-2022 Albumin [Mass/Vol] 3.5 g/dL Normal 3.2-5.0 [facility] Comment on above: Order Comment: Order Date: 08/12/22 Order Info: 0788-1 - LIVER Performed By: #### L 400.0001, L100.0100, L500.3400, L3100.1350 #### [facility] [address] [place], [address] ALK P 81 U/L Normal 45-117 [facility] Comment on above: Order Comment: Order Date: 08/12/22 Order Info: 0788-1 - LIVER Performed By: #### L 400.0001, L100.0100, L500.3400, L3100.1350 #### [facility] [address] [place], [address] ALT [Catalytic activity/Vol] 23 U/L Normal 13-56 [facility] Comment on above: Order Comment: Order Date: 08/12/22 Order Info: 0788-1 - LIVER Performed By: #### L 400.0001, L100.0100, L500.3400, L3100.1350 #### [facility] [address] [place], [address] AST [Catalytic activity/Vol] 8 U/L Low 15-37 [facility] Comment on above: Order Comment: Order Date: 08/12/22 Order Info: 0788-1 - LIVER Performed By: #### L 400.0001, L100.0100, L500.3400, L3100.1350 #### [facility] [address] [place], [address] Bilirubin [Mass/Vol] 0.40 mg/dL Normal 0.20-1.00 [facility] Comment on above: Order Comment: Order Date: 08/12/22 Order Info: 0788-1 - LIVER Result Comment: For patients on eltrombopag therapy, use of Dimension [place] TBIL is not recommended. Performed By: #### L 400.0001, L100.0100, L500.3400, L3100.1350 #### [facility] [address] [place], [address] Bilirubin.direct [Mass/Vol] 0.13 mg/dL Normal 0.00-0.30 [facility] Comment on above: Order Comment: Order Date: 08/12/22 Order Info: 0788-1 - LIVER Performed By: #### L 400.0001, L100.0100, L500.3400, L3100.1350 #### [facility] [address] [place], [address] Globulin (S) [Mass/Vol] 3.2 g/dL Normal 2.2-4.2 [facility] Comment on above: Order Comment: Order Date: 08/12/22 Order Info: 0788-1 - LIVER Performed By: #### L 400.0001, L100.0100, L500.3400, L3100.1350 #### [facility] [address] [place], [address] T PROT 6.7 g/dL Normal 6.4-8.2 [facility] Comment on above: Order Comment: Order Date: 08/12/22 Order Info: 0788-1 - LIVER Performed By: #### L 400.0001, L100.0100, L500.3400, L3100.1350 #### [facility] [address] [place], [place], [id number] MCHC Auto (RBC) [Mass/Vol]Or dered By: Dr. Wagner on 08-12-2022 MCHC (RBC) [Mass/Vol] 32.2 g/dL 32-36 [facility] Mucus LM Ql (Urine sed)Order ed By: Dr. Wagner on 08-12-2022 Mucus Ql (Urine sed) RARE /hpf [facility] Nitrite Test strip Ql (U)Ord ered By: Dr. Wagner on 08-12-2022 Nitrite Ql (U) Negative Negative [facility] Platelets bldOrdered By: Dr. Wagner on 08-12-2022 Platelets (Bld) [#/Vol] 302 10*3/uL 150-450 [facility] Protein Test strip Ql (U)Ord ered By: Dr. Wagner on 08-12-2022 Protein Ql (U) Negative Negative [facility] Serum or plasma albumin sylvia urement (mass/volume)Ordered By: Dr. Wagner on 08-12-2022 Albumin [Mass/Vol] 3.5 g/dL 3.2-5.0 [facility] Serum or plasma erythropoiet in (EPO) measurement (units/volume)Ordered By: Dr. Wagner on 08-12-2022 Erythropoietin (EPO) Qn 6.1 mIU/mL 2.6-18.5 [facility] Comment on above: Elizabeth Boqii UniC el DxI 800 Immunoassay SystemValues obtained with different assay methods or kits cannotbe used interchangeably. Results cannot be interpreted asabsolute evidence of the presence or absence of malignantdisease.Performed at: [address] [id number] Director: Raj Haq PhD, Phone: [phone] Squamous epithelial cells de tection in urine sediment by light microscopyOrdered By: Dr. Wagner on 08-12-2022 Epithelial cells.squamous LM Ql (Urine sed) 0-5 SEEN /hpf 5-10 [facility] Thin prep Papanicolaou smear with manual screeningOrdered By: Dr. Wagner on 08-12-2022 Thin prep Papanicolaou smear with manual screening 8 U/L 15-37 [facility] Urinalysis, Completeon 08-12 BACTERIA RARE Normal None Seen [facility] Comment on above: Order Comment: Order Date: 08/12/22 Order Info: [id number] - [facility] [employer]IVER TO SPECIFY Performed By: #### L 400.0001, L100.0100, L500.3400, L3100.1350 #### [facility] [address] [place], [address] EPI,SQUAMOUS 0-5 SEEN Normal 5-10 [facility] Comment on above: Order Comment: Order Date: 08/12/22 Order Info: [id number] - [facility] [employer] DRIVER TO SPECIFY Performed By: #### L 400.0001, L100.0100, L500.3400, L3100.1350 #### [facility] [address] [place], [place], [id number] Mucus Ql (Urine sed) RARE Normal [facility] Comment on above: Order Comment: Order Date: 08/12/22 Order Info: [id number] - [facility] [employer] DRIVER TO SPECIFY Performed By: #### L 400.0001, L100.0100, L500.3400, L3100.1350 #### [facility] [address] [place], [address] RBC 0 SEEN Normal 0-5 [facility] Comment on above: Order Comment: Order Date: 08/12/22 Order Info: [id number] - [facility] [employer]IVER TO SPECIFY Performed By: #### L 400.0001, L100.0100, L500.3400, L3100.1350 #### [facility] [address] [place], [address] WBC 0 SEEN Normal 0-5 [facility] Comment on above: Order Comment: Order Date: 08/12/22 Order Info: [id number] - [employer]A [employer] TO SPECIFY Performed By: #### L 400.0001, L100.0100, L500.3400, L3100.1350 #### [facility] [address] [place], [address] Urine blood detectionOrdered By: Dr. Wagner on 08-12-2022 RBC Ql (U) 10 /ul Negative [facility] RBC Ql (U) 0 SEEN /hpf 0-5 [facility] Urine clarityOrdered By: Dr. Wagner on 08-12-2022 Clarity (U) Clear Clear [facility] Urine color determinationOrd ered By: Dr. Wagner on 08-12-2022 Color (U) Yellow Yellow [facility] Urine glucose detectionOrder ed By: Dr. Wagner on 08-12-2022 Glucose Ql (U) Normal mg/dl Normal [facility] Urine leukocyte esterase det ection by dipstickOrdered By: Dr. Wagner on 08-12-2022 Leukocyte esterase Test strip Ql (U) Negative Negative [facility] Urine pHOrdered By: Dr. Jagdish garcia on 08-12-2022 pH (U) 6.0 [pH] 5.0 - 8.0 [facility] Urine sediment bacteria coun t by microscopy (number/high power field)Ordered By: Dr. Wagnre on 08-12-2022 Bacteria LM.HPF (Urine sed) [#/Area] RARE /hpf None Seen [facility] Urine specific gravity measu rementOrdered By: Dr. Wagner on 08-12-2022 Specific gravity (U) [Rel density] 1.025 1.002-1.030 [facility] Urobilinogen Auto test strip Ql (U)Ordered By: Dr. Wagner on 08-12-2022 Urobilinogen Ql (U) Normal mg/dl Normal [facility] Basic Metabolic Profile (BMP )on 08-03-2022 BUN/CRE 19.0 RATIO Normal 10-20 [facility] Comment on above: Order Comment: Order Date: 07/07/22 Order Info: 666- - BMP Order Info: [id number] - LIPID Performed By: #### L 503.0105, L500.4100, L506.1000, L100.0500, L500.2500 #### [facility] [address] [place], [address] CA,Total 9.1 mg/dL Normal 8.5-10.1 [facility] Comment on above: Order Comment: Order Date: 07/07/22 Order Info: 0667- - BMP Order Info: [id number] - LIPID Performed By: #### L 503.0105, L500.4100, L506.1000, L100.0500, L500.2500 #### [facility] [address] [place], [address] Chloride [Moles/Vol] 107 mmol/L Normal 98-107 [facility] Comment on above: Order Comment: Order Date: 07/07/22 Order Info: 06 - BMP Order Info: [id number] - LIPID Performed By: #### L 503.0105, L500.4100, L506.1000, L100.0500, L500.2500 #### [facility] [address] [place], [address] CO2 [Moles/Vol] 29.0 mmol/L Normal 21.0-32.0 [facility] Comment on above: Order Comment: Order Date: 07/07/22 Order Info: 06 - BMP Order Info: [id number] - LIPID Performed By: #### L 503.0105, L500.4100, L506.1000, L100.0500, L500.2500 #### [facility] [address] [place], [address] Creatinine [Mass/Vol] 0.69 mg/dL Normal 0.55-1.02 [facility] Comment on above: Order Comment: Order Date: 07/07/22 Order Info: [id number] - [facility] Order Info: [id number] - LIPID Result Comment: The validity of the calculated GFR GFRAA in patients over 70 years has not been determined. Clinical correlation is essential. Performed By: #### L 503.0105, L500.4100, L506.1000, L100.0500, L500.2500 #### [facility] [address] [place], [address] EST GFR - AA 119 mL/min Normal >60 [facility] Comment on above: Order Comment: Order Date: 07/07/22 Order Info: [id number] - [facility] Order Info: [id number] - LIPID Result Comment: Afri can Swiss GFR Calc Performed By: #### L 503.0105, L500.4100, L506.1000, L100.0500, L500.2500 #### [facility] [address] [place], [address] GAP 5 Normal 5-15 [facility] Comment on above: Order Comment: Order Date: 07/07/22 Order Info: [id number] - [facility] Order Info: [id number] - LIPID Performed By: #### L 503.0105, L500.4100, L506.1000, L100.0500, L500.2500 #### [facility] [address] [place], [address] GFR/1.73 sq M.predicted among non-blacks MDRD (S/P/Bld) [Vol rate/Area] 99 mL/min/{1.73_m2} Normal >60 [facility] Comment on above: Order Comment: Order Date: 07/07/22 Order Info: [id number] - BMP Order Info: [id number] - LIPID Result Comment: Non- GFR Calc Performed By: #### L 503.0105, L500.4100, L506.1000, L100.0500, L500.2500 #### [facility] [address] [place], [address] Glucose [Mass/Vol] 119 mg/dL High 74-106 [facility] Comment on above: Order Comment: Order Date: 07/07/22 Order Info: [id number] - BMP Order Info: [id number] - LIPID Result Comment: Fast ing Glucose result from 100 to 125 mg/dL suggests IMPAIRED HOMEOSTASIS per A.D.A. criteria. Performed By: #### L 503.0105, L500.4100, L506.1000, L100.0500, L500.2500 #### [facility] [address] [place], [address] Potassium [Moles/Vol] 3.9 mmol/L Normal 3.5-5.1 [facility] Comment on above: Order Comment: Order Date: 07/07/22 Order Info: [id number] - BMP Order Info: [id number] - LIPID Performed By: #### L 503.0105, L500.4100, L506.1000, L100.0500, L500.2500 #### [facility] [address] [place], [address] Sodium [Moles/Vol] 141 mmol/L Normal 136-145 [facility] Comment on above: Order Comment: Order Date: 07/07/22 Order Info: [id number] - BMP Order Info: [id number] - LIPID Performed By: #### L 503.0105, L500.4100, L506.1000, L100.0500, L500.2500 #### [facility] [address] [place], [address] Urea nitrogen [Mass/Vol] 13 mg/dL Normal 7-18 [facility] Comment on above: Order Comment: Order Date: 07/07/22 Order Info: [id number] - BMP Order Info: [id number] - LIPID Performed By: #### L 503.0105, L500.4100, L506.1000, L100.0500, L500.2500 #### [facility] [address] [place], [address] Basophil percentageOrdered B y: Dr. Wagner on 08-03-2022 Chloride [Moles/Vol] 107 mmol/L 98-107 [facility] Cholesterol [Mass/Vol] 191 mg/dL <200 [facility] Comment on above: <200 mg/dL Desirable 200-240 mg/dL Borderline >240 mg/dL High Risk Glucose [Mass/Vol] 119 mg/dL 74-106 [facility] Comment on above: Fasting Glucose resu lt from 100 to 125 mg/dL suggests IMPAIRED HOMEOSTASIS per A.D.A. criteria. Potassium [Moles/Vol] 3.9 mmol/L 3.5-5.1 [facility] Sodium [Moles/Vol] 141 mmol/L 136-145 [facility] Triglyceride [Mass/Vol] 112 mg/dL <199 [facility] Comment on above: The drugs N-Acetylcy steine and Metamizole may falsely depress this assay.Serum Triglycerides Reference Interval Normal <150 mg/dL Borderline high 150 - 199 mg/dL High 200 - 499 mg/dL Very High > or = 500 mg/dL WBC (Bld) [#/Vol] 9.5 10*3/uL 4.4-11.0 [facility] Blood erythrocytes count (nu mber/volume)Ordered By: Dr. Wagner on 08-03-2022 RBC (Bld) [#/Vol] 5.25 10*6/uL 4.2-5.4 [facility] Blood hemoglobin measurement (mass/volume)Ordered By: Dr. Wagner on 08-03-2022 Hemoglobin (Bld) [Mass/Vol] 15.8 g/dL 12.0-15.0 [facility] Blood platelet mean volumeOr dered By: Dr. Wagner on 08-03-2022 Platelet mean volume (Bld) [Entitic vol] 11.5 fL 6.2-12.0 [facility] CBC-Complete Blood Cnt No Di ffon 08-03-2022 Erythrocyte distribution width (RBC) [Ratio] 13.6 % Normal 11.6-14.6 [facility] Comment on above: Order Comment: Order Date: 07/07/22 Order Info: [id number] - CBC Performed By: #### L 503.0105, L500.4100, L506.1000, L100.0500, L500.2500 #### [facility] [address] [place], [address] Hematocrit (Bld) [Volume fraction] 49.1 % High 37-47 [facility] Comment on above: Order Comment: Order Date: 07/07/22 Order Info: [id number] - CBC Performed By: #### L 503.0105, L500.4100, L506.1000, L100.0500, L500.2500 #### [facility] [address] [place], [address] Hemoglobin (Bld) [Mass/Vol] 15.8 g/dL High 12.0-15.0 [facility] Comment on above: Order Comment: Order Date: 07/07/22 Order Info: [id number] - CBC Performed By: #### L 503.0105, L500.4100, L506.1000, L100.0500, L500.2500 #### [facility] [address] [place], [address] MCH (RBC) [Entitic mass] 30.1 pg Normal 27.0-32.0 [facility] Comment on above: Order Comment: Order Date: 07/07/22 Order Info: [id number] - CBC Performed By: #### L 503.0105, L500.4100, L506.1000, L100.0500, L500.2500 #### [facility] [address] [place], [address] MCHC (RBC) [Mass/Vol] 32.2 g/dL Normal 32-36 [facility] Comment on above: Order Comment: Order Date: 07/07/22 Order Info: [id number] - CBC Performed By: #### L 503.0105, L500.4100, L506.1000, L100.0500, L500.2500 #### [facility] [address] [place], [address] MCV (RBC) [Entitic vol] 93.5 fL Normal 81-99 [facility] Comment on above: Order Comment: Order Date: 07/07/22 Order Info: [id number] - CBC Performed By: #### L 503.0105, L500.4100, L506.1000, L100.0500, L500.2500 #### [facility] [address] [place], [address] Platelet mean volume (Bld) [Entitic vol] 11.5 fL Normal 6.2-12.0 [facility] Comment on above: Order Comment: Order Date: 07/07/22 Order Info: [id number] - CBC Performed By: #### L 503.0105, L500.4100, L506.1000, L100.0500, L500.2500 #### [facility] [address] [place], [address] Platelets (Bld) [#/Vol] 296 10*3/uL Normal 150-450 [facility] Comment on above: Order Comment: Order Date: 07/07/22 Order Info: [id number] - CBC Performed By: #### L 503.0105, L500.4100, L506.1000, L100.0500, L500.2500 #### [facility] [address] [place], [address] RBC (Bld) [#/Vol] 5.25 10*6/uL Normal 4.2-5.4 [facility] Comment on above: Order Comment: Order Date: 07/07/22 Order Info: [id number] - CBC Performed By: #### L 503.0105, L500.4100, L506.1000, L100.0500, L500.2500 #### [facility] [address] [place], [place], [id number] RDW SD 47.0 fl High 35.1-43.9 [facility] Comment on above: Order Comment: Order Date: 07/07/22 Order Info: [id number] - CBC Performed By: #### L 503.0105, L500.4100, L506.1000, L100.0500, L500.2500 #### [facility] [address] [place], [address] WBC (Bld) [#/Vol] 9.5 10*3/uL Normal 4.4-11.0 [facility] Comment on above: Order Comment: Order Date: 07/07/22 Order Info: [id number] - CBC Performed By: #### L 503.0105, L500.4100, L506.1000, L100.0500, L500.2500 #### [facility] [address] [place], [place], [address] Determination of erythrocyte mean corpuscular volume (MCV)Ordered By: Dr. Wagner on 08-03-2022 MCV (RBC) [Entitic vol] 93.5 fL 81-99 [facility] Hematocrit Auto (Bld) [Volum e fraction]Ordered By: Dr. Wagner on 08-03-2022 Hematocrit (Bld) [Volume fraction] 49.1 % 37-47 [facility] - Chemistry and C hemistry - challengeOrdered By: Dr. Wagner on 08-03-2022 CO2 [Moles/Vol] 29.0 mmol/L 21.0-32.0 [facility] Cobalamin (Vitamin B12) [Mass/Vol] 407 pg/mL 211-911 [facility] Urea nitrogen/Creatinine [Mass ratio] 19.0 mg/mg 10-20 [facility] - Hematology and Cell countsOrdered By: Dr. Wagner on 08-03-2022 Erythrocyte distribution width (RBC) [Entitic vol] 47.0 fL 35.1-43.9 [facility] Erythrocyte distribution width (RBC) [Ratio] 13.6 % 11.6-14.6 [facility] MCH (RBC) [Entitic mass] 30.1 pg 27.0-32.0 [facility] Lipid Profileon 08-03-2022 Cholesterol [Mass/Vol] 191 mg/dL Normal 200 [facility] Comment on above: Order Comment: Order Date: 07/07/22 Order Info: [id number] - BMP Order Info: [id number] - LIPID Result Comment: <200 mg/dL Desirable 200-240 mg/dL Borderline >240 mg/dL High Risk Performed By: #### L 503.0105, L500.4100, L506.1000, L100.0500, L500.2500 #### [facility] [address] [place], [address] Cholesterol in HDL [Mass/Vol] 45 mg/dL Normal [facility] Comment on above: Order Comment: Order Date: 07/07/22 Order Info: [id number] - [facility] Order Info: [id number] - LIPID Result Comment: The drugs N-Acetylcysteine and Metamizole may falsely depress this assay. Reference Range HDL <40 mg/dL Low HDL Cholesterol HDL >or= 60 mg/dL High HDL Cholesterol Performed By: #### L 503.0105, L500.4100, L506.1000, L100.0500, L500.2500 #### [facility] [address] [place], [address] Cholesterol in LDL [Mass/Vol] 124 mg/dL Normal 0-130 [facility] Comment on above: Order Comment: Order Date: 07/07/22 Order Info: [id number] - BMP Order Info: [id number] - LIPID Performed By: #### L 503.0105, L500.4100, L506.1000, L100.0500, L500.2500 #### [facility] [address] [place], [address] Cholesterol in VLDL [Mass/Vol] 22 mg/dL Normal 5-40 [facility] Comment on above: Order Comment: Order Date: 07/07/22 Order Info: [id number] - BMP Order Info: [id number] - LIPID Performed By: #### L 503.0105, L500.4100, L506.1000, L100.0500, L500.2500 #### [facility] [address] [place], [address] Triglyceride [Mass/Vol] 112 mg/dL Normal [facility] Comment on above: Order Comment: Order Date: 07/07/22 Order Info: [id number] - BMP Order Info: [id number] - LIPID Result Comment: The drugs N-Acetylcysteine and Metamizole may falsely depress this assay. Serum Triglycerides Reference Interval Normal <150 mg/dL Borderline high 150 - 199 mg/dL High 200 - 499 mg/dL Very High > or = 500 mg/dL Performed By: #### L 503.0105, L500.4100, L506.1000, L100.0500, L500.2500 #### [facility] [address] [place], [address] MCHC Auto (RBC) [Mass/Vol]Or dered By: Dr. Wagner on 08-03-2022 MCHC (RBC) [Mass/Vol] 32.2 g/dL 32-36 [facility] No Panel InformationOrdered By: Dr. Wagner on 08-03-2022 Estimated GFR (MDRD) Amer 119 mL/min >60 [facility] Comment on above: GFR Calc Estimated GFR (MDRD) Non-Af Amer 99 mL/min >60 [facility] Comment on above: Non- GFR Calc Vitamin D 25-Hydroxy 21.0 ng/mL [facility] Comment on above: Vitamin D 25(OH) Sta tus Range Deficiency <20 ng/mL (50nmol/L) Insufficiency 20 - 30 ng/mL (50 - 75 nmol/L) Sufficiency 30 - 100 ng/mL (75 - 250 nmol/L) Toxicity >100 ng/mL (>250 nmol/L) Platelets bldOrdered By: Dr. Wagner on 08-03-2022 Platelets (Bld) [#/Vol] 296 10*3/uL 150-450 [facility] Serum or plasma calcium sylvia urement (mass/volume)Ordered By: Dr. Wagner on 08-03-2022 Calcium [Mass/Vol] 9.1 mg/dL 8.5-10.1 [facility] Serum or plasma cholesterol in HDL measurement (mass/volume)Ordered By: Dr. Wagner on 08-03-2022 Cholesterol in HDL [Mass/Vol] 45 mg/dL >40 [facility] Comment on above: The drugs N-Acetylcy steine and Metamizole may falsely depress this assay. Reference Range HDL <40 mg/dL Low HDL Cholesterol HDL >or= 60 mg/dL High HDL Cholesterol Serum or plasma cholesterol in VLDL measurement (mass/volume)Ordered By: Dr. Wagner on 08-03-2022 Cholesterol in VLDL [Mass/Vol] 22 mg/dL 5-40 [facility] Serum or plasma creatinine m easurement (mass/volume)Ordered By: Dr. Wagner on 08-03-2022 Creatinine [Mass/Vol] 0.69 mg/dL 0.55-1.02 [facility] Comment on above: The validity of the calculated GFR & GFRAA in patients over 70 years has not been determined. Clinical correlation is essential. Serum or plasma low density lipoprotein (LDL) cholesterol measurement (mass/volume)Ordered By: Dr. Wagner on 08-03-2022 Cholesterol in LDL [Mass/Vol] 124 mg/dL 0-130 [facility] Serum or plasma urea nitroge n measurement (mass/volume)Ordered By: Dr. Wagner on 08-03-2022 Urea nitrogen [Mass/Vol] 13 mg/dL 7-18 [facility] Thin prep Papanicolaou smear with manual screeningOrdered By: Dr. Wagner on 08-03-2022 Thin prep Papanicolaou smear with manual screening 5 5-15 [facility] Vitamin B12on 08-03-2022 Cobalamin (Vitamin B12) [Mass/Vol] 407 pg/mL Normal 211-911 [facility] Comment on above: Order Comment: Order Date: 07/07/22 Order Info: [id number] - B12 Order Info: [id number] - VITD25 Performed By: #### L 503.0105, L500.4100, L506.1000, L100.0500, L500.2500 #### [facility] [address] [place], [address] Vitamin D,25 Hydroxyon 08-03 Vitamin D 25-OH 21.0 ng/mL Normal [facility] Comment on above: Order Comment: Order Date: 07/07/22 Order Info: [id number] - B12 Order Info: [id number] - VITD25 Result Comment: Lindsay min D 25(OH) Status Range Deficiency <20 ng/mL (50nmol/L) Insufficiency 20 - 30 ng/mL (50 - 75 nmol/L) Sufficiency 30 - 100 ng/mL (75 - 250 nmol/L) Toxicity >100 ng/mL (>250 nmol/L) Performed By: #### L 503.0105, L500.4100, L506.1000, L100.0500, L500.2500 #### [facility] [address] [place], [place], [address] MULTIMERIC, VON WILLEBRAND ( CARDIO ONLY)on 01-05-2022 VON WILLEBRAND MULTIMERIC SEE BELOW [facility] Comment on above: All multimers of von Willebrand Factor Antigen are present in normal amounts. von Willebrand Factor multimer reviewed by: Rekha Baron, Ph.D. Test Performed at: [facility] [address] Ja Santos M.D., Ph.D.,Director of Laboratories [facility] FACTOR XI ACTIVITYOrdered By : Kelsy Stoner on 12-31-2021 Coagulation factor XI activated Coag Qn (PPP) 122 [facility] Interpretation and review of laboratory results Normal [facility] VWDB-SPECIAL COAGon 01-01-20 Coagulation factor VIII activity actual/normal Coag (PPP) [Relative time] 68 % Low [facility] Interpretation and review of laboratory results Abnormal [facility] vWf Ag actual/normal IA (PPP) [Relative mass conc] 65 % 50 - 180 % [facility] vWf ristocetin cofactor act actual/normal Platelet aggregation (PPP) [Relative time] 70 [facility] CBC AND ELECTRONIC DIFFon Basophils (Bld) [#/Vol] 0.07 10*3/uL 0.00 - 0.15 K/uL [facility] Basophils/100 WBC (Bld) 0.9 % [facility] Differential cell count method Nom (Bld) Electronic Differential [facility] Eosinophils (Bld) [#/Vol] 0.21 10*3/uL 0.00 - 0.42 K/uL [facility] Eosinophils/100 WBC (Bld) 2.6 % [facility] Erythrocyte distribution width (RBC) [Ratio] 13.9 % 10.8 - 14.9 % [facility] Hematocrit (Bld) [Volume fraction] 43.0 % 34.9 - 44.3 % [facility] Hemoglobin (Bld) [Mass/Vol] 14.3 g/dL 11.4 - 15.2 g/dL [facility] Immature granulocytes (Bld) [#/Vol] 10*3/uL <=0.09 K/uL [facility] Immature granulocytes/100 WBC (Bld) 0.4 % [facility] Lymphocytes (Bld) [#/Vol] 2.22 10*3/uL 1.16 - 3.51 K/uL [facility] Lymphocytes/100 WBC (Bld) 27.0 % [facility] MCH (RBC) [Entitic mass] 29.9 pg 25. 9 - 33.9 pg [facility] MCHC (RBC) [Mass/Vol] 33.3 g/dL 31.4 - 35.9 g/dL [facility] MCV (RBC) [Entitic vol] 90.0 fL 79.6 - 97.7 fL [facility] Monocytes (Bld) [#/Vol] 0.74 10*3/uL 0.22 - 0.87 K/uL [facility] Monocytes/100 WBC (Bld) 9.0 % [facility] Neutrophils (Bld) [#/Vol] 4.96 10*3/uL 1.64 - 7.28 K/uL [facility] Nucleated RBC/100 WBC (Bld) [Ratio] 0.0 % <=0.2 /100 WBC [facility] Platelet mean volume (Bld) [Entitic vol] 11.3 fL 8.5 - 12.2 fL [facility] Platelets (Bld) [#/Vol] 271 10*3/uL 150 - 393 K/uL [facility] RBC (Bld) [#/Vol] 4.78 10*6/uL [facility] Segmented neutrophils/100 WBC (Bld) 60.1 % [facility] WBC (Bld) [#/Vol] 8.23 10*3/uL 3.99 - 11. 19 K/uL [facility] FERRITINon 12-30-2021 Ferritin [Mass/Vol] 192.1 ng/mL 10.0 - 2 91.0 ng/mL [facility] Interpretation and review of laboratory results Normal [facility] FIBRINOGEN, CLOTTABLEon Fibrinogen Coag (PPP) [Mass/Vol] 319 mg/dL 220 - 410 mg/dL [facility] Comment on above: Functional Fibrinoge n (activity) levels can be affected by direct thrombin inhibitors such as heparins (>2.0 IU/ml) and dabigatran. Abnormal results should be interpreted with caution. Interpretation and review of laboratory results Normal [facility] Fibrinogen levels may be altered by the normal physiologic changes of and should be interpreted considering reference ranges specific to gestational age. First Trimester: 244-510 mg/dL Second Trimester: 291-538 mg/dL Third Trimester: 373-619 mg/dL Reference: Christian M, Rylee LG, Odin FG. and laboratory studies: a reference table for clinicians. Obstet Gynecol 2009; 114:1326. [facility] IRON/IRON BINDING/TRANSFERRI Non 12-30-2021 Interpretation and review of laboratory results Normal [facility] Iron [Mass/Vol] 94 ug/dL [facility] Iron binding capacity [Mass/Vol] 349 [facility] Iron saturation [Mass fraction] 27 % 20 - 55 % [facility] Transferrin [Mass/Vol] 234 mg/dL 200 - 400 mg/dL [facility] PLATELET FUNCTION TESTOrdere d By: Roxann Palacios on 12-30-2021 Interpretation and review of laboratory results Abnormal [facility] Platelet function (closure time) collagen+ADP induced (Bld) [Time] 131 High [facility] Platelet function (closure time) collagen+EPINEPHrine induced (Bld) [Time] 243 High [facility] Platelet Function Interpretation Prolonged Collagen/Epinephrin e Closure Time and Collagen/ADP Closure Time. This pattern is associated with abnormalities of platelet-mediated primary hemostasis. Platelet aggregation study or vWF: Antigen/Ristocetin Cofactor may be indicated. Clinical correlation recommended. Closure Time may be prolonged by Hct <35% or platelet count <150,000/ L. [facility] PROTIME-INRon 12-30-2021 INR Coag (Bld) [Relative time] 1.1 {INR} [facility] Interpretation and review of laboratory results Normal [facility] PT Coag (PPP) [Time] 13.9 s [facility] TYPE AND SCREENon 12-30-2021 ABO/RH(D) TYPE Positive [facility] VWDB-ROUTINE COAGon 12-31-19 aPTT Coag (PPP) [Time] 31.3 s [facility] Interpretation and review of laboratory results Normal [facility] PROGon 10-07-2017 Progesterone Level 0.2 ng/mL Normal [facility] ([place]) Comment on above: Result Comment: Adul t Female Progesterone Reference Ranges (07/01/99): Follicular phase 0.2 - 1.4 ng/mL Luteal phase 3.3 - 25.6 ng/mL Mid-Luteal phase 4.4 - 28.0 ng/mL Postmenopausal 0.2 - 0.7 ng/mlAdult Male: 0.3 - 1.2 ng/mL Performed By: #### C BC, ADIFF, ANEU, FE, CMP, IBC, GFR, TSH, FT4, FT3, A1C ####[address] [place], [place] [address]#### FERR, ERICKA, MCRSO, RF ####[place] [id number] [place] [id number] .GFRon 10-06-2017 eGFR (non-black) mL/min/{1.73_m2} Normal [facility] ([place]) Comment on above: Result Comment: GFR Population mean for , Non- Americans Ages 20-29 = 116 mL/min/1.73 sq.m. Ages 30-39 = 107 mL/min/1.73 sq.m. Ages 40-49 = 99 mL/min/1.73 sq.m. Ages 50-59 = 93 mL/min/1.73 sq.m. Ages 60-69 = 85 mL/min/1.73 sq.m. Ages 70+ = 75 mL/min/1.73 sq.m.Chronic Kidney Disease: Less than 60 mL/min/1.73 square metersEnd Stage Renal Disease: Less than 15 mL/min/1.73 square meters Performed By: #### C BC, ADIFF, ANEU, FE, CMP, IBC, GFR, TSH, FT4, FT3, A1C ####[address] [place], [place] [address]#### FERR, ERICKA, MCRSO, RF ####[place] [id number] [place] [address] eGFR (non-black) 114 ml/min/1.73sqm Normal [facility] ([place]) Comment on above: Result Comment: GFR Population mean for , Non- Americans Ages 20-29 = 116 mL/min/1.73 sq.m. Ages 30-39 = 107 mL/min/1.73 sq.m. Ages 40-49 = 99 mL/min/1.73 sq.m. Ages 50-59 = 93 mL/min/1.73 sq.m. Ages 60-69 = 85 mL/min/1.73 sq.m. Ages 70+ = 75 mL/min/1.73 sq.m.Chronic Kidney Disease: Less than 60 mL/min/1.73 square metersEnd Stage Renal Disease: Less than 15 mL/min/1.73 square meters Performed By: #### C BC, ADIFF, ANEU, FE, CMP, IBC, GFR, TSH, FT4, FT3, A1C ####[id number] [place], [place] [address]#### GUERLINE, ERICKA, MCRSO, RF ####[place] [address] A1Con 10-06-2017 Hemoglobin A1c/Hemoglobin.total mass fraction (Bld) 5.9 % Normal 4.8-5.9 [facility] ([place]) Comment on above: Performed By: #### C BC, ADIFF, ANEU, FE, CMP, IBC, GFR, TSH, FT4, FT3, A1C ####[place] [address] [place], [place] [address]#### GUERLINE, ERICKA, MCRSO, RF ####[place] [address] CMPon 10-06-2017 Alanine aminotransferase (ALT) 16 U/L Normal 10-35 [facility] ([place]) Comment on above: Performed By: #### C BC, ADIFF, ANEU, FE, CMP, IBC, GFR, TSH, FT4, FT3, A1C ####[place] [address] [place], [place] [address]#### FERR, ERICKA, MCRSO, RF ####[address] [address] Albumin 4.2 G/dL Normal 3.5-5.0 [facility] ([place] Comment on above: Performed By: #### C BC, ADIFF, ANEU, FE, CMP, IBC, GFR, TSH, FT4, FT3, A1C ####[place] [address]#### FERR, ERICKA, MCRSO, RF ####[place] [address] Albumin/Globulin Ratio 1.6 {ratio} Normal 1.1-2.5 [facility] ([place]) Comment on above: Performed By: #### C BC, ADIFF, ANEU, FE, CMP, IBC, GFR, TSH, FT4, FT3, A1C ####[place] [address]#### FERR, ERICKA, MCRSO, RF ####[place] [address] Alk Phos 101 IU/L Normal 40-135 [facility] ([place] Comment on above: Performed By: #### C BC, ADIFF, ANEU, FE, CMP, IBC, GFR, TSH, FT4, FT3, A1C ####[place] [address]#### FERR, ERICKA, MCRSO, RF ####[place] [address] Aspartate aminotransferase (AST) 16 U/L Normal 10-40 [facility] ([place] Comment on above: Performed By: #### C BC, ADIFF, ANEU, FE, CMP, IBC, GFR, TSH, FT4, FT3, A1C ####[place] [address]#### FERR, ERICKA, MCRSO, RF ####[place] [address] Bili Total <0.2 Low 0.2-1.0 [facility] ([place] Comment on above: Performed By: #### C BC, ADIFF, ANEU, FE, CMP, IBC, GFR, TSH, FT4, FT3, A1C ####[place] [address]#### FERR, ERICKA, MCRSO, RF ####[place] [address] BUN/Creatinine Ratio 12 ratio Normal 7-27 [facility] ([place]) Comment on above: Performed By: #### C BC, ADIFF, ANEU, FE, CMP, IBC, GFR, TSH, FT4, FT3, A1C ####[address] [place] [place], [place] [address]#### FERR, ERICKA, MCRSO, RF ####[address] [address] Calcium 8.9 mg/dL Normal 8.4-10.2 [facility] ([place] Comment on above: Performed By: #### C BC, ADIFF, ANEU, FE, CMP, IBC, GFR, TSH, FT4, FT3, A1C ####[place] [address]#### FERR, ERICKA, MCRSO, RF ####[address] [address] Chloride 106 mmol/L Normal 98-107 [facility] ([place] Comment on above: Performed By: #### C BC, ADIFF, ANEU, FE, CMP, IBC, GFR, TSH, FT4, FT3, A1C ####[address] [address]#### FERR, ERICKA, MCRSO, RF ####[address] [address] CO2 27 mmol/L Normal 22-29 [facility] ([place] Comment on above: Performed By: #### C BC, ADIFF, ANEU, FE, CMP, IBC, GFR, TSH, FT4, FT3, A1C ####[address] [address]#### FERR, ERICKA, MCRSO, RF ####[address] [address] Creatinine 0.7 mg/dL Normal 0.6-1.2 [facility] ([place] Comment on above: Performed By: #### C BC, ADIFF, ANEU, FE, CMP, IBC, GFR, TSH, FT4, FT3, A1C ####[place] [address]#### FERR, ERICKA, MCRSO, RF ####[place] [address] Electrolyte Balance 8.0 mEq/L Normal [facility] ([place] Comment on above: Performed By: #### C BC, ADIFF, ANEU, FE, CMP, IBC, GFR, TSH, FT4, FT3, A1C ####[place] [address]#### FERR, ERICKA, MCRSO, RF ####[place] [address] Globulin 2.6 G/dL Normal [facility] ([place] Comment on above: Performed By: #### C BC, ADIFF, ANEU, FE, CMP, IBC, GFR, TSH, FT4, FT3, A1C ####[place] [address]#### FERR, ERICKA, MCRSO, RF ####[place] [address] Glucose mass conc 102 mg/dL Normal 70-105 [facility] ([place] Comment on above: Performed By: #### C BC, ADIFF, ANEU, FE, CMP, IBC, GFR, TSH, FT4, FT3, A1C ####[place] [address]#### FERR, ERICKA, MCRSO, RF ####[place] [address] Potassium molar conc 3.9 mmol/L Normal 3.5-5.1 [facility] ([place]) Comment on above: Performed By: #### C BC, ADIFF, ANEU, FE, CMP, IBC, GFR, TSH, FT4, FT3, A1C ####[place] [address]#### FERR, ERICKA, MCRSO, RF ####[place] [address] Protein 6.8 G/dL Normal 6.0-8.3 [facility] ([place] Comment on above: Performed By: #### C BC, ADIFF, ANEU, FE, CMP, IBC, GFR, TSH, FT4, FT3, A1C ####[address] [address]#### FERR, ERICKA, MCRSO, RF ####[address] [address] Sodium 141 mmol/L Normal 136-146 [facility] ([place] Comment on above: Performed By: #### C BC, ADIFF, ANEU, FE, CMP, IBC, GFR, TSH, FT4, FT3, A1C ####[address] [address]#### FERR, ERICKA, MCRSO, RF ####[address] [address] Urea nitrogen 8.4 mg/dL Normal 7.0-18.0 [facility] ([place] Comment on above: Performed By: #### C BC, ADIFF, ANEU, FE, CMP, IBC, GFR, TSH, FT4, FT3, A1C ####[place] [address]#### FERR, ERICKA, MCRSO, RF ####[address] [address] RFon 06-01-2017 Rheumatoid Factor <6.0 Normal [facility] ([place]) Comment on above: Result Comment: RF I gM Antibody by Enzyme Immunoassay: Negative < or = 6 Positive > 6A positive result indicates the presence of RF antibodiesand suggests the possibility of rheumatoid arthritis.A negative result indicates no RF IgM antibody or levelsbelow the negative cut-off of the assay.Results of this assay should be used in conjunction with clinical findings and other serological tests.These results were obtained with the [employer] QUANTA Lite RF IgM CECI. RF IgM values obtained with different manufacturers' assay methods may not be used interchangeably.The magnitude of the reported IgM levels cannot be correlated to an endpoint titer. Performed By: #### C BC, ADIFF, ANEU, FE, CMP, IBC, GFR, TSH, FT4, FT3, A1C ####[place] [address]#### FERR, ERICKA, MCRSO, RF ####[place] [address] ANAon 05-30-2017 ERICKA Titer 40 {titer} Normal Neg 40 [facility] ([place] Comment on above: Performed By: #### C BC, ADIFF, ANEU, FE, CMP, IBC, GFR, TSH, FT4, FT3, A1C ####[place] [address]#### FERR, ERICKA, MCRSO, RF ####[place] [address] CORTAon 05-30-2017 CORTISOL 0.6 mcg/dL Low 6.5-26.0 [facility] ([place]) Comment on above: Performed By: #### C BC, ADIFF, ANEU, FE, CMP, IBC, GFR, TSH, FT4, FT3, A1C ####[place] [address]#### FERR, ERICKA, MCRSO, RF ####[place] [address] [id number] 05-30-2017 Microsomal Ab <10 Normal 0-35 [facility] ([place] Comment on above: Result Comment: This result represents Anti-TPO antibodies which aresynonymous with microsomal antibodies. Performed By: #### C BC, ADIFF, ANEU, FE, CMP, IBC, GFR, TSH, FT4, FT3, A1C ####[place] [address]#### FERR, ERICKA, MCRSO, RF ####[place] [address] .Auto Diffon 05-29-2017 Basophils Auto #/vol (Bld) 0.10 10 3/mcL Normal 0.00-0.19 [facility] ([place] Comment on above: Performed By: #### C BC, ADIFF, ANEU, FE, CMP, IBC, GFR, TSH, FT4, FT3, A1C ####[address] [address]#### FERR, ERICKA, MCRSO, RF ####[address] [address] Basophils/100 WBC Auto (Bld) 0.7 % Normal 0.0-2.5 [facility] ([place] Comment on above: Performed By: #### C BC, ADIFF, ANEU, FE, CMP, IBC, GFR, TSH, FT4, FT3, A1C ####[place] [address]#### FERR, ERICKA, MCRSO, RF ####[address] [address] Eosinophils 0.30 10 3/mcL Normal 0.00-0.40 [facility] ([place]) Comment on above: Performed By: #### C BC, ADIFF, ANEU, FE, CMP, IBC, GFR, TSH, FT4, FT3, A1C ####[place] [address]#### FERR, ERICKA, MCRSO, RF ####[address] [address] Eosinophils/100 leukocytes 2.4 % Normal 0.0-7.0 [facility] ([place]) Comment on above: Performed By: #### C BC, ADIFF, ANEU, FE, CMP, IBC, GFR, TSH, FT4, FT3, A1C ####[place] [address]#### FERR, ERICKA, MCRSO, RF ####[address] [address] Lymphocytes 2.40 10 3/mcL Normal 0.77-3.85 [facility] ([place] Comment on above: Performed By: #### C BC, ADIFF, ANEU, FE, CMP, IBC, GFR, TSH, FT4, FT3, A1C ####[place] [address]#### FERR, ERICKA, MCRSO, RF ####[address] [address] Lymphocytes/100 leukocytes 22.7 % Normal 10.0-50.0 [facility] ([place]) Comment on above: Performed By: #### C BC, ADIFF, ANEU, FE, CMP, IBC, GFR, TSH, FT4, FT3, A1C ####[place] [address]#### FERR, ERICKA, MCRSO, RF ####[address] [address] Monocytes 0.90 10 3/mcL Normal 0.15-1.00 [facility] ([place]) Comment on above: Performed By: #### C BC, ADIFF, ANEU, FE, CMP, IBC, GFR, TSH, FT4, FT3, A1C ####[place] [address]#### FERR, ERICKA, MCRSO, RF ####[address] [address] Monocytes/100 leukocytes 8.1 % Normal 1.7-13.0 [facility] ([place]) Comment on above: Performed By: #### C BC, ADIFF, ANEU, FE, CMP, IBC, GFR, TSH, FT4, FT3, A1C ####[place] [address]#### FERR, ERICKA, MCRSO, RF ####[address] [address] Neutrophils/100 WBC Auto (Bld) 66.1 % Normal 37.0-80.0 [facility] ([place]) Comment on above: Performed By: #### C BC, ADIFF, ANEU, FE, CMP, IBC, GFR, TSH, FT4, FT3, A1C ####[place] [address]#### FERR, ERICKA, MCRSO, RF ####[address] [address] .GFRon 05-29-2017 eGFR (non-black) mL/min/{1.73_m2} Normal [facility] ([place]) Comment on above: Result Comment: GFR Population mean for , Non- Americans Ages 20-29 = 116 mL/min/1.73 sq.m. Ages 30-39 = 107 mL/min/1.73 sq.m. Ages 40-49 = 99 mL/min/1.73 sq.m. Ages 50-59 = 93 mL/min/1.73 sq.m. Ages 60-69 = 85 mL/min/1.73 sq.m. Ages 70+ = 75 mL/min/1.73 sq.m.Chronic Kidney Disease: Less than 60 mL/min/1.73 square metersEnd Stage Renal Disease: Less than 15 mL/min/1.73 square meters Performed By: #### C BC, ADIFF, ANEU, FE, CMP, IBC, GFR, TSH, FT4, FT3, A1C ####[address] [place], [place] [address]#### FERR, ERICKA, MCRSO, RF ####[address] [address] eGFR (non-black) 134 ml/min/1.73sqm Normal [facility] ([place]) Comment on above: Result Comment: GFR Population mean for , Non- Americans Ages 20-29 = 116 mL/min/1.73 sq.m. Ages 30-39 = 107 mL/min/1.73 sq.m. Ages 40-49 = 99 mL/min/1.73 sq.m. Ages 50-59 = 93 mL/min/1.73 sq.m. Ages 60-69 = 85 mL/min/1.73 sq.m. Ages 70+ = 75 mL/min/1.73 sq.m.Chronic Kidney Disease: Less than 60 mL/min/1.73 square metersEnd Stage Renal Disease: Less than 15 mL/min/1.73 square meters Performed By: #### C BC, ADIFF, ANEU, FE, CMP, IBC, GFR, TSH, FT4, FT3, A1C ####[id number] [place], [place] [address]#### FERR, ERICKA, MCRSO, RF ####[address] [address] .NEUABSon 05-29-2017 Neutrophils 7.10 10 3/mcL High 2.85-6.16 [facility] ([place]) Comment on above: Performed By: #### C BC, ADIFF, ANEU, FE, CMP, IBC, GFR, TSH, FT4, FT3, A1C ####[facility] [place], [place] [address]#### FERR, ERICKA, MCRSO, RF ####[place] [address] A1Con 05-29-2017 Hemoglobin A1c/Hemoglobin.total mass fraction (Bld) 5.9 % Normal 4.8-5.9 [facility] ([place]) Comment on above: Performed By: #### C BC, ADIFF, ANEU, FE, CMP, IBC, GFR, TSH, FT4, FT3, A1C ####[place] [address] [place] [address]#### FERR, ERICKA, MCRSO, RF ####[place] [address] CBCon 05-29-2017 Erythrocyte distribution width Auto Ratio (RBC) 13.8 % Normal 11.5-14.5 [facility] ([place]) Comment on above: Performed By: #### C BC, ADIFF, ANEU, FE, CMP, IBC, GFR, TSH, FT4, FT3, A1C ####[place] [address] [place] [id number]#### FERR, ERICKA, MCRSO, RF ####[place] [address] Erythrocytes (RBC) 5.12 10 6/mcL Normal 4.20-5.40 [facility] ([place] Comment on above: Performed By: #### C BC, ADIFF, ANEU, FE, CMP, IBC, GFR, TSH, FT4, FT3, A1C ####[facility] [place] [id number]#### FERR, ERICKA, MCRSO, RF ####[place] [address] Hematocrit (HCT) 45.9 % Normal 37.0-47.0 [facility] ([place] Comment on above: Performed By: #### C BC, ADIFF, ANEU, FE, CMP, IBC, GFR, TSH, FT4, FT3, A1C ####[place] [address]#### FERR, ERICKA, MCRSO, RF ####[place] [address] Hemoglobin mass conc (Bld) 15.2 G/dL Normal 12.0-16.0 [facility] ([place]) Comment on above: Performed By: #### C BC, ADIFF, ANEU, FE, CMP, IBC, GFR, TSH, FT4, FT3, A1C ####[place] [address]#### FERR, ERICKA, MCRSO, RF ####[place] [address] MCH 29.8 pg Normal 27.0-31.2 [facility] ([place]) Comment on above: Performed By: #### C BC, ADIFF, ANEU, FE, CMP, IBC, GFR, TSH, FT4, FT3, A1C ####[place] [address]#### FERR, ERICKA, MCRSO, RF ####[place] [address] MCHC mass conc (RBC) 33.2 G/dL Normal 33.0-37.0 [facility] ([place]) Comment on above: Performed By: #### C BC, ADIFF, ANEU, FE, CMP, IBC, GFR, TSH, FT4, FT3, A1C ####[place] [address]#### FERR, ERICKA, MCRSO, RF ####[place] [address] MCV 89.7 fL Normal 80.0-94.0 [facility] ([place]) Comment on above: Performed By: #### C BC, ADIFF, ANEU, FE, CMP, IBC, GFR, TSH, FT4, FT3, A1C ####[place] [address]#### FERR, ERICKA, MCRSO, RF ####[address] [address] Platelet mean volume (PMV) 9.5 fL Normal 7.4-10.4 [facility] ([place]) Comment on above: Performed By: #### C BC, ADIFF, ANEU, FE, CMP, IBC, GFR, TSH, FT4, FT3, A1C ####[place] [address]#### FERR, ERICKA, MCRSO, RF ####[address] [address] Platelets 263 10 3/mcL Normal 130-400 [facility] ([place]) Comment on above: Performed By: #### C BC, ADIFF, ANEU, FE, CMP, IBC, GFR, TSH, FT4, FT3, A1C ####[place] [address]#### FERR, ERICKA, MCRSO, RF ####[address] [address] WBC (Leukocytes) 10.70 10 3/mcL Normal 4.60-10.80 [facility] ([place]) Comment on above: Performed By: #### C BC, ADIFF, ANEU, FE, CMP, IBC, GFR, TSH, FT4, FT3, A1C ####[place] [address]#### FERR, ERICKA, MCRSO, RF ####[address] [address] CMPon 05-29-2017 Alanine aminotransferase (ALT) 13 U/L Normal 10-35 [facility] ([place]) Comment on above: Performed By: #### C BC, ADIFF, ANEU, FE, CMP, IBC, GFR, TSH, FT4, FT3, A1C ####[place] [address]#### FERR, ERICKA, MCRSO, RF ####[place] [address] Albumin 4.2 G/dL Normal 3.5-5.0 [facility] ([place]) Comment on above: Performed By: #### C BC, ADIFF, ANEU, FE, CMP, IBC, GFR, TSH, FT4, FT3, A1C ####[place] [address]#### FERR, ERICKA, MCRSO, RF ####[place] [address] Albumin/Globulin Ratio 1.6 {ratio} Normal 1.1-2.5 [facility] ([place]) Comment on above: Performed By: #### C BC, ADIFF, ANEU, FE, CMP, IBC, GFR, TSH, FT4, FT3, A1C ####[place] [address]#### FERR, ERICKA, MCRSO, RF ####[place] [address] Alk Phos 98 IU/L Normal 40-135 [facility] ([place]) Comment on above: Performed By: #### C BC, ADIFF, ANEU, FE, CMP, IBC, GFR, TSH, FT4, FT3, A1C ####[place] [address]#### FERR, ERICKA, MCRSO, RF ####[place] [address] Aspartate aminotransferase (AST) 15 U/L Normal 10-40 [facility] ([place]) Comment on above: Performed By: #### C BC, ADIFF, ANEU, FE, CMP, IBC, GFR, TSH, FT4, FT3, A1C ####[place] [address]#### FERR, ERICKA, MCRSO, RF ####[place] [address] Bili Total 0.3 mg/dL Normal 0.2-1.0 [facility] ([place]) Comment on above: Performed By: #### C BC, ADIFF, ANEU, FE, CMP, IBC, GFR, TSH, FT4, FT3, A1C ####[address] [address]#### FERR, ERICKA, MCRSO, RF ####[address] [address] BUN/Creatinine Ratio 13 ratio Normal 7-27 [facility] ([place]) Comment on above: Performed By: #### C BC, ADIFF, ANEU, FE, CMP, IBC, GFR, TSH, FT4, FT3, A1C ####[place] [address]#### FERR, ERICKA, MCRSO, RF ####[address] [address] Calcium 9.1 mg/dL Normal 8.4-10.2 [facility] ([place]) Comment on above: Performed By: #### C BC, ADIFF, ANEU, FE, CMP, IBC, GFR, TSH, FT4, FT3, A1C ####[place] [address]#### FERR, ERICKA, MCRSO, RF ####[place] [address] Chloride 103 mmol/L Normal 98-107 [facility] ([place] Comment on above: Performed By: #### C BC, ADIFF, ANEU, FE, CMP, IBC, GFR, TSH, FT4, FT3, A1C ####[place] [address]#### FERR, ERICKA, MCRSO, RF ####[place] [address] CO2 30 mmol/L High 22-29 [facility] ([place] Comment on above: Performed By: #### C BC, ADIFF, ANEU, FE, CMP, IBC, GFR, TSH, FT4, FT3, A1C ####[place] [address]#### FERR, ERICKA, MCRSO, RF ####[place] [address] Creatinine 0.6 mg/dL Normal 0.6-1.2 [facility] ([place]) Comment on above: Performed By: #### C BC, ADIFF, ANEU, FE, CMP, IBC, GFR, TSH, FT4, FT3, A1C ####[place] [address]#### FERR, ERICKA, MCRSO, RF ####[place] [address] Electrolyte Balance 7.0 mEq/L Normal [facility] ([place] Comment on above: Performed By: #### C BC, ADIFF, ANEU, FE, CMP, IBC, GFR, TSH, FT4, FT3, A1C ####[place] [address]#### FERR, ERICKA, MCRSO, RF ####[place] [address] Globulin 2.7 G/dL Normal [facility] ([place] Comment on above: Performed By: #### C BC, ADIFF, ANEU, FE, CMP, IBC, GFR, TSH, FT4, FT3, A1C ####[place] [address]#### FERR, ERICKA, MCRSO, RF ####[place] [address] Glucose mass conc 116 mg/dL High 70-105 [facility] ([place] Comment on above: Performed By: #### C BC, ADIFF, ANEU, FE, CMP, IBC, GFR, TSH, FT4, FT3, A1C ####[place] [address]#### FERR, ERICKA, MCRSO, RF ####[place] [address] Potassium molar conc 4.1 mmol/L Normal 3.5-5.1 [facility] ([place]) Comment on above: Performed By: #### C BC, ADIFF, ANEU, FE, CMP, IBC, GFR, TSH, FT4, FT3, A1C ####[place] [address]#### FERR, ERICKA, MCRSO, RF ####[place] [address] Protein 6.9 G/dL Normal 6.0-8.3 [facility] ([place] Comment on above: Performed By: #### C BC, ADIFF, ANEU, FE, CMP, IBC, GFR, TSH, FT4, FT3, A1C ####[place] [address]#### FERR, ERICKA, MCRSO, RF ####[place] [address] Sodium 140 mmol/L Normal 136-146 [facility] ([place]) Comment on above: Result Comment: 140 Performed By: #### C BC, ADIFF, ANEU, FE, CMP, IBC, GFR, TSH, FT4, FT3, A1C ####[place] [address]#### FERR, ERICKA, MCRSO, RF ####[place] [address] Urea nitrogen 7.9 mg/dL Normal 7.0-18.0 [facility] ([place]) Comment on above: Performed By: #### C BC, ADIFF, ANEU, FE, CMP, IBC, GFR, TSH, FT4, FT3, A1C ####[place] [address]#### FERR, ERICKA, MCRSO, RF ####[place] [address] FEon 05-29-2017 Iron 89 ug/dL Normal 65-170 [facility] ([place]) Comment on above: Performed By: #### C BC, ADIFF, ANEU, FE, CMP, IBC, GFR, TSH, FT4, FT3, A1C ####[place] [address]#### FERR, ERICKA, MCRSO, RF ####[place] [address] Sofiya 05-29-2017 Ferritin 168 ng/mL Normal 8-252 [facility] ([place]) Comment on above: Performed By: #### C BC, ADIFF, ANEU, FE, CMP, IBC, GFR, TSH, FT4, FT3, A1C ####[place] [address]#### FERR, ERICKA, MCRSO, RF ####[place] [address] FT3on 05-29-2017 Triiodothyronine (T3) free 3.6 pg/mL Normal 2.3-4.0 [facility] ([place]) Comment on above: Performed By: #### C BC, ADIFF, ANEU, FE, CMP, IBC, GFR, TSH, FT4, FT3, A1C ####[place] [address]#### FERR, ERICKA, MCRSO, RF ####[place] [address] FT4on 05-29-2017 Thyroxine (T4) free 1.0 ng/mL Normal 0.6-1.7 [facility] [place] Comment on above: Performed By: #### C BC, ADIFF, ANEU, FE, CMP, IBC, GFR, TSH, FT4, FT3, A1C ####[place] [address]#### FERR, ERICKA, MCRSO, RF ####[place] [address] IBCon 05-29-2017 TIBC 328 mcg/dL Normal 250-450 [facility] ([place]) Comment on above: Performed By: #### C BC, ADIFF, ANEU, FE, CMP, IBC, GFR, TSH, FT4, FT3, A1C ####[place] [address]#### FERR, ERICKA, MCRSO, RF ####[place] [address] TSHon 05-29-2017 Thyroid stimulating hormone (TSH) 1.30 mcIU/mL Normal 0.27-4.20 [facility] ([place]) Comment on above: Performed By: #### C BC, ADIFF, ANEU, FE, CMP, IBC, GFR, TSH, FT4, FT3, A1C ####[id number] [place], [place] [address]#### FERR, ERICKA, MCRSO, RF ####[place] [address] Otheron 07-29-2009 CONVERTED CLINICAL HISTORY OPERATIVE PROCEDURE: Robotic total lap vag hysterectomy, enterolysis, RENETTA CLINICAL INFORMATION: Endometriosis [facility] CONVERTED FINAL DIAGNOSIS FINAL DIAGNOSIS: UTERUS, RESECTION - WEAKLY PROLIFERATIVE ENDOMETRIUM. SPECIMEN: UTERUS [facility] CONVERTED GROSS DESCRIPTION GROSS DESCRIPTION: Uterus The specimen is received labeled uterus. Received is a uterus weighing 94 gm and measuring 9 x 5 x 4 cm. The serosal surface is smooth, olson-pink. The cervix has a diameter of 2 cm. The ectocervix is dusky, red-gibbs. The cervical os is linear, measuring 0.8 cm in diameter. Sections through the cervix reveal no abnormalities. The specimen is bivalved and the endometrial cavity measures 6 x 3 cm. The endometrium is thin, red, measuring 0.1 to 0.2 cm. On cut section, the myometrium is muscular, olson-pink and measures up to 2 cm. Sections are as follows: 1 - anterior cervix, 2 - posterior cervix, 3&4 - endomyometrium anterior, 5&6 - endomyometrium posterior. AP/SMS/lrs MICROSCOPIC DESCRIPTION: Slides reviewed. SDS/lrs [facility] ORDERING PROVIDER Ordering Provider: JACQUIE [facility] Thyroidon 07-29-2009 TSH Padmini LOPEZ M.D., PATHOLOGIST (Electronic signature on file) Final Signed Out: 07/29/2009 12:[address] [facility] Otheron 08-31-1999 CONVERTED ELECTRONIC SIGNATURE ADAM NOE M.D., PATHOLOGIST (Electronic signature on file) Final Signed Out: 08/31/1999 15:[address] [facility] CONVERTED FINAL DIAGNOSIS ENDOMETRIUM, CURETTAGE - EARLY SECRETORY PHASE ENDOMETRIUM. SEE COMMENT. COMMENT - Although a rare plasma cell is identified within the stroma, definitive features of endometritis are not identified. [facility] ORDERING PROVIDER Ordering Provider: [facility] Vital Signs Date Time Vital Sign Value Performing Clinician Diana sharma 02-03-2025 14:46-0400 Body height 167.6 cm Dangelo Catalan MD Work Phone: [facility] 02-03-2025 14:46-0400 Body mass index (BMI) [Ratio] 35.83 kg/m2 Dangelo Catalan MD Work Phone: [facility] 02-03-2025 14:46-0400 Body temperature 97.59 [degF] Dangelo Catalan MD Work Phone: [facility] 02-03-2025 14:46-0400 Body weight 100.7 kg Dangelo Catalan MD Work Phone: [facility] 02-03-2025 14:46-0400 Diastolic blood pressure 73 mm[Hg] Dangelo Catalan MD Work Phone: [facility] 02-03-2025 14:46-0400 Heart rate 73 /min Dangelo Catalan MD Work Phone: [facility] 02-03-2025 14:46-0400 Respiratory rate 18 /min Dangelo Catalan MD Work Phone: [facility] 02-03-2025 14:46-0400 SaO2% (BldA) [Mass fraction] 98 % Dangelo Catalan MD Work Phone: [facility] 02-03-2025 14:46-0400 Systolic blood pressure 161 mm[Hg] Dangelo Catalan MD Work Phone: [facility] 01-09-2023 11:25-0400 Body height 167.6 cm Dangelo Catalan MD Work Phone: [facility] 01-09-2023 11:25-0400 Body mass index (BMI) [Ratio] 35.67 kg/m2 Dangelo Catalan MD Work Phone: [facility] 01-09-2023 11:25-0400 Body temperature 98.01 [degF] Dangelo Catalan MD Work Phone: [facility] 01-09-2023 11:25-0400 Body weight 100.25 kg Dangelo Catalan MD Work Phone: [facility] 01-09-2023 11:25-0400 Diastolic blood pressure 75 mm[Hg] Dangelo Catalan MD Work Phone: [facility] 01-09-2023 11:25-0400 Heart rate 60 /min Dangelo Catalan MD Work Phone: [facility] 01-09-2023 11:25-0400 Respiratory rate 16 /min Dangelo Catalan MD Work Phone: [facility] 01-09-2023 11:25-0400 SaO2% (BldA) [Mass fraction] 97 % Dangelo Catalan MD Work Phone: [facility] 01-09-2023 11:25-0400 Systolic blood pressure 135 mm[Hg] Dangelo Catalan MD Work Phone: [facility] 12-30-2021 14:07-0400 Body mass index (BMI) [Ratio] 33.89 kg/m2 Dangelo Catalan MD Work Phone: [facility] 12-30-2021 14:07-0400 Body temperature 98.6 [degF] Dangelo Catalan MD Work Phone: [facility] 12-30-2021 14:07-0400 Body weight 95.25 kg Dangelo Catalan MD Work Phone: [facility] 12-30-2021 14:07-0400 Diastolic blood pressure 63 mm[Hg] Dangelo Catalan MD Work Phone: [facility] 12-30-2021 14:07-0400 Heart rate 62 /min Dangelo Catalan MD Work Phone: [facility] 12-30-2021 14:07-0400 Respiratory rate 20 /min Dangelo Catalan MD Work Phone: [facility] 12-30-2021 14:07-0400 SaO2% (BldA) [Mass fraction] 98 % Dangelo Catalan MD Work Phone: [facility] 12-30-2021 14:07-0400 Systolic blood pressure 144 mm[Hg] Dangelo Catalan MD Work Phone: [facility] Encounters Encounter Date Encounter Type Care Provider Facility Start: 04-11-2025 End: 04-11-2025 Clinical Support Encounter Dangelo Catalan MD Work Phone: [facility] Comment on above: Von willebrand disea se, type 1; Hemorrhagic diathesis Start: 04-03-2025 ambulatory MICHAEL bhatt:[facility] Start: 02-03-2025 ambulatory MICHAEL bhatt:[facility] Start: 02-03-2025 End: 02-03-2025 Office outpatient visit 25 minutes Dangelo Catalan MD Work Phone: [facility] of Hematology & Oncology Comment on above: Von Willebrand disea se (Primary Dx); Von willebrand disease, type 1 Start: 01-29-2025 End: 01-29-2025 Telephone encounter Isaura BERNSTEIN Division of Hematology & Oncology Comment on above: Other Start: 01-09-2023 End: 01-09-2023 Office outpatient visit 25 minutes Dangelo Catalan MD Work Phone: [facility]ology [facility] Oncology Comment on above: Von Willebrand disea se (Primary Dx) Start: 08-12-2022 ambulatory Lambertoerwin Wagner Facil ity:[facility] Start: 08-12-2022 End: 08-12-2022 ambulatory [facility] Work Phone: Start: 08-12-2022 End: 08-12-2022 Patient encounter procedure [facility] Start: 08-03-2022 ambulatory [facility] Facil ity:[facility] Start: 08-03-2022 End: 08-03-2022 ambulatory [facility] Work Phone: Start: 08-03-2022 End: 08-03-2022 Patient encounter procedure [facility] Start: 12-30-2021 End: 01-25-2022 Office outpatient visit 25 minutes Dangelo Catalan MD Work Phone: Division of Hematology [facility] Oncology Comment on above: Hemorrhagic diarrhea (Primary Dx); Hemorrhagic diathesis Start: 10-06-2017 End: 10-07-2017 Ambulatory [facility] Facility:[facility] Start: 05-30-2017 End: 05-31-2017 Ambulatory [facility] Facility:[facility] Start: 05-29-2017 End: 05-30-2017 Ambulatory [facility] Facility:[facility] Start: 07-27-2009 End: 07-27-2009 Patient encounter procedure Jacquie Guerin Work Phone: [facility] Start: 07-27-2009 Results Only Jacquie morales Work Phone: [facility] Start: 08-30-1999 End: 08-30-1999 Patient encounter procedure Jacquie Guerin Work Phone: [facility] Start: 08-30-1999 Results Only Jacquie morales Work Phone: [facility] Procedures Date Procedure Procedure Detail Performing Clinician Start: 04-11-2025 MISCELLANEOUS SENDOUT Thelma Do Work Phone: Start: 04-11-2025 REQUEST FOR MISC LAB SENDOUT Ivett Do Work Phone: Start: 02-03-2025 Thromboplastin time partial plasma/whole blood Dangelo Catalan MD Work Phone: Start: 02-03-2025 VON WILLEBRAND BATTE RY AGN + FACTOR VIII Dangelo Catalan MD Work Phone: Start: 01-09-2023 MISCELLANEOUS SENDOUT N debby Catalan MD Work Phone: Start: 01-09-2023 Platelet aggregation in vitro each agent Dangelo Catalan MD Work Phone: Start: 01-09-2023 REQUEST FOR MISC LAB SENDOUT Dangelo Catalan MD Work Phone: Start: 12-30-2021 Antibody screen Dangelo Catalan MD Work Phone: Start: 12-30-2021 Assay of ferritin Jackie candi Catalan MD Work Phone: Start: 12-30-2021 Blood typing serologic abo Dangelo Catalan MD Work Phone: Start: 12-30-2021 CBC AND ELECTRONIC DIFF Dangelo Catalan MD Work Phone: Start: 12-30-2021 Complete blood count with white cell differential, automated Dangelo Catalan MD Work Phone: Start: 12-30-2021 VON WILLEBRAND BATTE RY AGN + FACTOR VIII Dangelo Catalan MD Work Phone: Start: 07-27-2009 CONVERTED SURGICAL PATHOLOGY Jacquie Guerin Work Phone: Start: 08-30-1999 CONVERTED SURGICAL PATHOLOGY Jacquie Guerin Work Phone: Plan of Treatment Date Care Activity Detail Author Start: 02-09-2026 End: 02-09-2026 Patient encounter procedure 02/09/2026 11:00 AM EDT Office Visit Division of Hematology & Oncology [address] [address] Dangelo Brooks MD [address] [address] [facility] Start: 03-31-2025 COVID-19 VACCINE () COVID-19 VACCINE () [facility] Start: 03-31-2025 Influenza vaccination INFLUENZA VACC INE (#1) [facility] Start: 02-03-2025 End: 02-03-2025 Patient encounter procedure 02/03/2025 2:30 PM EDT Office Visit Division of Hematology & Oncology [address] [place] [id number] Dangelo Brooks MD [address] [address] Division of H[facility]ology [facility] Oncology Start: 02-03-2025 End: 02-03-2026 FIBRINOGEN, CLOTTABLE FIBRINOGEN, CLOTTABLE Lab Add on Von willebrand disease, type 1 Expected: 02/03/2025, Expires: 02/03/2026 [facility] Comment on above: Expected: 02/03/2025 , Expires: 02/03/2026 Start: 02-03-2025 End: 02-03-2026 PT,INR,PTT PT,INR,PTT Lab Add on Von Willebrand disease Expected: 02/03/2025, Expires: 02/03/2026 [facility] Comment on above: Expected: 02/03/2025 , Expires: 02/03/2026 Start: 02-03-2025 End: 02-03-2026 VON WILLEBRAND BATTERY AGN + FACTOR VIII [facility] Comment on above: Expected: 02/03/2025 , Expires: 02/03/2026 Start: 03-31-2024 COVID-19 VACCINE ( season) COVID-19 VACCINE ( season) [facility] Start: 01-15-2024 End: 01-15-2024 Telemedicine consultation with patient 01/15/2024 10:00 AM EDT Telemedicine Division of Hematology & Oncology [address] [facility] [address] [place] [address] Dangelo Brooks MD [address] [facility] [address], [place] [address] Division of Hematology & Oncology Start: 03-31-2023 Influenza vaccination INFLUENZA VACC INE (#1) [facility] Start: 2023 Screening for malign ant neoplasm of colon COLORECTAL CANCER SCREENING DISCUSSION [facility] Start: 09-18-2022 Tetanus vaccination TETANUS [facility] Start: 03-31-2022 Influenza vaccination INFLUENZ A VACCINE (Season Ended) [facility] Start: 03-31-2020 Influenza vaccination INFLUENZA (#1) [facility] Start: 2018 Fasting lipid profile LIPID SCREENIN G [facility] Start: 2018 Lipid panel LIPID SCREENING [facility] Start: 2018 Mammography MAMMOGRAM [facility] Start: 2018 Screening for malign ant neoplasm of breast MAMMOGRAM SCREENING DISCUSSION [facility] Start: 2018 Screening mammography MAMMOGRA M SCREENING DISCUSSION [facility] Start: 02-20-2008 HPV TESTING HPV TESTING [facility] Start: 1999 PAP TESTING PAP TESTING [facility] Start: 1999 Screening for malign ant neoplasm of cervix CERVICAL CANCER SCREENING DISCUSSION [facility] Start: 1997 Hepatitis B vaccination HEP B VACCINE (1 of 3 - 19+ 3-dose series) [facility] Start: 1997 Third diphtheria, tetanus and acellular pertussis (DTaP) vaccination TDAP (ADULT) [facility] Start: 1997 Urine microalbumin profile DTAP,TDAP,TD (1 - Tdap) [facility] Start: 02-20-1996 HEPATITIS C SCREENING HEPATITIS C SC REENING [facility] Start: 02-20-1996 HIV SCREENING HIV SCREENING [facility] Start: 02-20-1996 Tetanus vaccination TETANUS [facility] Start: 1993 HIV screening HIV SCREENING DISCUSSION [facility] Start: 1978 COVID-19 VACCINE (#1) COVID-19 VACCI NE (#1) [facility] Start: 1978 Hepatitis C antibody , confirmatory test HEPATITIS C VIRUS SCREENING [facility] Start: 1978 Hepatitis C screening HEPATITI S C VIRUS SCREENING [facility] MISCELLANEOUS SENDOUT MISCELLANE OUS SENDOUT Lab Routine Von willebrand disease, type 1 Hemorrhagic diathesis 04/11/2025 10:14 AM EDT [facility] Work Phone: MISCELLANEOUS SENDOU T BILLING MISCELLANEOUS SENDOUT BILLING Lab Routine Von willebrand disease, type 1 Hemorrhagic diathesis 04/11/2025 10:14 AM EDT [facility] VWDB-SPECIAL COAG VWDB-SPECIAL C OAG Lab Routine Von Willebrand disease 02/03/2025 4:47 PM EDT [facility] Payers Date Payer Category Payer Self-pay 2019 Managed Care (unspecified) [facility] [id number] 2019 Unknown PRADEEP FERNÁNDEZ HM O PPO POS [id number] 2019-Present [address] [place] [address] [id number] 2012 Unknown [id number] 2007 Unknown MMO [employer] PLUS [id number] 2007-2019 PPO [id number] 1978 Unknown [id number] 1978 Unknown [id number] 1978 Unknown [id number] Unknown [id number] Unknown [id number] Social History Date Type Detail Facility Start[facility]14-[facility] Start: 07-31-2001 End: 07-31-2007 History of tobacco use Cigarette Smoker [facility] Start: 05-14-2008 End: 02-03-2025 Cigarettes smoked current (pack per day) - Reported 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 Start: 1980 Sex Assigned At Not on file [facility] Start: 11-01-2019 [facility] Start: 07-31-2001 End: 07-31-2007 History of tobacco use Current smoker [facility] Start: 11-01-2019 Tobacco use and exposure Smoke less tobacco non-user [facility] Start: 01-23-2022 End: 02-03-2025 Alcohol intake Lifetime non-drinker (finding) [facility] Start: 11-01-2019 History SDOH Alcohol Frequency 1 [facility] Start: 07-04-2021 Tobacco smoking stat [facility] Unknown if ever smoked [facility] Start: 1980 Sex Assigned At Female W [facility] Start: 11-01-2019 End: 02-03-2025 Alcohol Use Disorder Identification Test - Consumption [AUDIT-C] [facility] How often to you hav e a drink containing alcohol? Never [facility] Average Number of Drinks Not on file [facility] Start: 08-02-2019 Sex Female (finding) [facility] Functional Status Date Assessment Result Facility 07-06-2021 Are you deaf, or do you have serious difficulty hearing No 07/06/2021 9:11 PM Oralia Kong, GENO No [facility] 07-06-2021 Are you blind, or do you have serious difficulty seeing, even when wearing glasses No 07/06/2021 9:11 PM Oralia Kong, GENO No [facility] 07-06-2021 Do you have serious difficulty walking or climbing stairs No 07/06/2021 9:11 PM Oralia Kong, GENO No [facility] 07-06-2021 Do you have difficul ty dressing or bathing No 07/06/2021 9:11 PM Oralia Kong, GENO No [facility] 07-06-2021 Because of a physica l, mental, or emotional condition, do you have difficulty doing errands alone such as visiting a physician's office or shopping No 07/06/2021 9:11 PM Oralia Kong, RN No [facility] Mental Status Date Assessment Result Facility 07-06-2021 Because of a physica l, mental, or emotional condition, do you have serious difficulty concentrating, remembering, or making decisions No 07/06/2021 9:11 PM Oralia Kong, RN No [facility] Clinical Notes 12-30-2021 to 02-03-2025 Tyrone Kate RN - 02/03/2025 2:30 PM Evans Castelan, [facility] - 02/03/2025 2:30 PM EDTDangelo Catalan MD - 02/03/2025 2:30 PM Pablo Pierce RN - 02/03/2025 2:30 PM EDT Note Date & Type Note Facility 02-03-2025 History of Presen t illness Narrative Have you had any s/s of bleeding? (nosebleeds, gums when brushing or flossing, stool/urine): None Any planned procedures/dental work? : None Periods- duration, products #/hr, flow: Not having. Hysterectomy Refills needed?: None Patient seen by pharmacist today in conjunction with multidisciplinary team. Pt w/ VWD type 2N. Stimate Challenge? No, per Dr Cheung DAAVChela IV and IN, presumed previous use of factor product, presumes no response to DDAVP Thrombotic risk History of thrombosis? no CV risk: The ASCVD Risk score (Sheffield DK, et al., 2019) failed to calculate for the following reasons: Cannot find a previous HDL lab Cannot find a previous total cholesterol lab Tobacco Use: Medium Risk (02/03/2025) Patient History Smoking Tobacco Use: Former Smokeless Tobacco Use: Never Passive Exposure: Not on file Insurance: [facility] (preferred by insurance): [facility] 02/03/25 Disorder: VWD Treatment: TXA PRN Medications Tried:None Any adverse effects? N/A Self infuse? no Treatment type: on demand Adherence? N/A Bleeding history: ISTH-BAT 7; gum bleeding, bleeding with procedures, easy bruising, nosebleeds Bleeding in the last 3 months? none Admissions related to bleeding disorder since last visit: No Upcoming procedures? No Procedure history: none since last visit Upcoming high bleed risk activities? No Doses remaining at home: yes Refill needed? No Other concerns: none Current weight: Wt Readings from Last 1 Encounters: 02/03/25 100.7 kg (222 lb) [place] [address] body weight: 59.3 kg (130 lb 11.7 oz) Adjusted ideal body weight: 75.9 kg (167 lb 3.8 oz) Treatment adequate to control bleeding? yes Considerations for treatment adjustment: None PLAN Continue Lysteda PRN Problem list updated with current emergency plan Defer to Dr. Harrison s note for full therapy plan. The following clinical intervention(s) beyond standard practice occurred during today s visit: Provided therapy recommendations or management for safe and effective medication use [facility] Hemostasis and Thrombosis ID: 44 yo F with bleeding diathesis most likely R/O compound heterozygous of 2N autosomal recessive disease and other form of quantitative disorder, in clinic for follow up. DISEASE HISTORY: 1. R/O von Willebrand 2N spectrum disorder (presumed compound heterozygous 2N w/ mild quantitative disorder or blood type O low VW) vs. 2N Carrier + Bleeding diathesis NOS. -History: Workup prompted at age 11, following prolonged bleeding after nose contusion (Bleeding x 5 hours) -Blood Type: O -ISTH-BAT: 7 (12/2021), although may be falsely decreased as all of her procedures have been done under DDAVP +/- factor replacement -Bleeding history: *Epistaxis (-), Bleeding oral hygiene: Brushing (+), Flossing (+). Bleeding on minor dental procedures/dentist comments in regards of bleeding (+) *Easy Bruising (+) <5 times / >1 cm, spontaneous 20%, Bleeding minor wounds (+) > 10 minutes *Surgeries/Procedures: -Reconstructive nose surgery (age 11) --> Minor bleeding (but patient presumes something was given to prevent bleeding). -[place] teeth extraction (2004) --> No bleeding (states received factor VIII) -Laparoscopic endometriosis resection (1996) --> States minor prolonged bleeding/healing from umbilical insertion. No special precautions. States episode of oozing/bleeding in between 1998 -2001 from laparoscopic insertion points x 3 for endometriosis (duering a period of 2-4 months). -Hematuria () --> unclear etiology. As per patient cystoscopy negative for specific etiology (had minor postprocedure bleeding, no special precautions taken). -Partial Hysterecotmy (2008) for menorrhagia/endometriosis, no records --> No bleeding (managed with infusion pre/post procedure, unclear). -Right ovarian cyst bleed w/ resection (2015), no records --> Controlled on medication plan for 6 weeks (unclear) -Laparoscopic Cholecystectomy () --> no bleeding complicaitons, only s/p TXA +TXA x 5 days (no bleeding complications an adequate healing), no delay bleeding from trocar insertion points. *Obstetrics/Gynecology -Menarche at age 9 (Bleeding for 14 days, 10 days of heavy bleeding changing pads Q 2-3H). Attempted OCPs (at age 17), failure to improve. Had history of associated ELYSE - x 1 (2008) --> No bleeding complications, states was given infusion (unclear) previous and after procedure. Had a medication (possibly hemostatic) plan for up to 6 weeks after delivery (unclear) *DDAVP Challenge: No records *Family History: Mother (Radha Gordon, ) with bleeding diathesis (possible type 2N Disease homozygous as has undetectable 2N Binding assay as has lower FVIII but high VWAg and activity or has concomitant hemophilia carrier status) *Medication: DAAVP IV and IN, presumed previous use of factor product, presumes no response to DDAVP. *Blood Products: None *Workup: -1992: 02/1993: FVIII=70%, Normal Multimer Analysis, 03/1993: vWD Ag=59%, 08/1992: Ristocetin=54%, Antigen=60%, FVIII=72% -09/2003: PFA 100 (Abnormal) with prolongation of C/E and C/A, FVIII=76%, vWD Ag=55%, Multimer Analysis (all decreased), Ristocetin=48%. -11/2003: Normalized PFA-100, FVIII=67%, vWD=64%, Ristocetin=32% -2007: VWD Ag=59, Ristocetin=52% FVIII=50%, Normal multimer analysis. Normal PFA-100, Mild prolongation of PTT (34.7-36) -06/2021 (while acute cholecystitis): OZEON=194, Xsuqfxkboq=528, Atfulmp=844 -12/2021: Rcrknzkyie=397, UOU=614%, PFA C/E and C/A prolonged. Normal Multimer Analysis, FVIII=68%, Ristocetin=70, vWAg=65 (activity higher than antigen, questionable) -01/2022: Platelet aggregation (w/o secretion studies) --> Normal, VWAg=83, Ristocetin=85, FVIII=74%, FXIII=90% -12/2022: PFA (Normal C/E and Prolonged C/A, unspecific), Versiti 2N Panel: vWAg=60, FVIII=67 (Ref>71), 2N Binding=58 (Ref>86), compatible at least with 2N carrier status -04/2024: Dr9GS=87 (ristocetin=82), FVIII=94 (Chromogenic=85), vWAg=93. vWF genetic testing showing c.2561 G>A (Heterozygous/Pathogenic) and absence of c.4414 G>C. INTERVAL HISTORY: -No bleeding events Past Medical History: Diagnosis Date Anemia Bleeding disorder Endometritis 07/31/1997 VWD (von Willebrand's disease) 07/31/1991 unconfirmed per pt Past Surgical History: Procedure Laterality Date CHOLECYSTECTOMY LAPAROSCOPIC N/A 07/06/2021 Laterality: N/A; Surgeon: Aamir Ricci MD; Location: [facility] MAIN OR OOPHORECTOMY LAPAROSCOPIC Right 07/31/2010 HYSTERECTOMY 07/31/2009 SECTION 06/15/2009 [place] ENDOMETRIAL CRYOABLATION W/US & ENDOMETRIAL CR Bilateral 07/31/2003 x4 procedures RECONSTRUCTION NASAL 07/31/1991 Family History Problem Relation Age of Onset Other - Specify Mother bleeding disorder Cancer- Other Mother cervical GI Disease Mother Dysrhythmia Mother Seizures/Epilepsy Mother Diabetes Father Emphysema Father Other - Specify Father degenerative disk disorders Other - Specify Brother degenerative disk disease Uterine Cancer Maternal Grandmother Lung Cancer Maternal Grandmother Thyroid Disease Paternal Grandmother Other - Specify Paternal Grandmother degenerative disk disease Diabetes Paternal Grandfather Myocardial Infarction Paternal Grandfather Social History Tobacco Use Smoking status: Former Current packs/day: 0.00 Average packs/day: 0.5 packs/day for 6.0 years (3.0 ttl pk-yrs) Types: Cigarettes Start date: 07/31/2001 Quit date: 07/31/2007 Years since quittin.5 Smokeless tobacco: Never Substance Use Topics Alcohol use: Never Drug use: Never Review of Systems Constitutional: Negative. HENT: Negative. Eyes: Negative. Cardiovascular: Negative. Respiratory: Negative. Endocrine: Negative. Hematologic/Lymphatic: Negative. Skin: Negative. Musculoskeletal: Negative. Gastrointestinal: Negative. Genitourinary: Negative. Neurological: Negative. Psychiatric/Behavioral: Negative. Outpatient Medications Prior to Visit Medication Sig Dispense Refill tranexamic acid 650 MG tablet Take 2 tablets by mouth every 8 hours as needed. Take 2 pills if bleeding, can continue every 8 hours up to 2 days (in total 12 pills) 60 tablet 3 No facility-administered medications prior to visit. PHYSICAL EXAM: Vitals: 02/03/25 1446 BP: 161/73 Pulse: 73 Resp: 18 Temp: 97.6 degrees F (36.4 degrees C) TempSrc: Oral SpO2: 98% Weight: 100.7 kg (222 lb) Height: 1.676 m (5' 6) Physical Exam Constitutional: Appearance: Normal appearance. HENT: Head: Atraumatic. Eyes: Extraocular Movements: Extraocular movements intact. Cardiovascular: Rate and Rhythm: Normal rate and regular rhythm. Pulmonary: Effort: Pulmonary effort is normal. Abdominal: Palpations: Abdomen is soft. Musculoskeletal: Cervical back: Neck supple. Right lower leg: No edema. Left lower leg: No edema. Neurological: Mental Status: She is oriented to person, place, and time. Mental status is at baseline. Psychiatric: Mood and Affect: Mood normal. Behavior: Behavior normal. ASSESSMENT AND PLAN: 44 yo F with bleeding diathesis most likely R/O compound heterozygous of 2N autosomal recessive disease and other form of quantitative disorder, in clinic for follow up. Patient has a mild bleeding diathesis characterized by easy bruising, prolonged bleeding from minor wounds, menorrhagia and delay bleeding/wound healing from procedures. Patient has a former diagnosis of wWD Type 1 and patient's mother has the diagnosis of most likely 2N (has undetectable 2N binding but normal VWD antigen/activity which may suggest homozygous for 2N disease or heterozygous + congenital FVIII deficeincy). Mother has never undergone genetic testing. Patient ISTH-BAT is 7 (but may be falsely over estimated as has received support for all her procedures, although details of products used are unclear. Has remote laboratories supporting the diagnosis (2003) with a mildly low antigen and activity levels (by ristocetin and in the absence of c.4414 G>C which may denote correlation with Gp1BM), although questionable as ratio activity/antigen was really discordant in comparison to later testing, although at the time had a multimer analysis with decrease of all sizes by multimer (which will be compatible with what could be found on a type 1 disorder, type 2N or 2M). Classically in the [place] type 2N spectrum disorders with bleeding are a compound heterozygosity from a Type 1 gene and a type 2N, rather the variant in which patient had two 2N mutations which may be situation of the mother). Also, patient states problems with wound healing (as well as delay bleeding from wounds but normal FXIII functional assay). Denies hypermobile features. Has normal FXIII and platelet aggregation studies Recommendations: 1) vWD [facility] Panel for baseline at the institution +/- Fibrinogen +/- PT/PTT 2) Tranexamic acid 1300mg PO Q8H as needed for bleeding 3) F/U 1 year Dangelo Catalan MD Hematology, Hemostasis and Thrombosis Clinical Coordinator introduces self to patient and explains role and functioning of [facility]. Discussed with patient that [facility] requires a minimal 2 week notice for all non-emergent procedures including dental. Reviewed that anytime pt has a bleed/infuses factor [facility] requests to be notified. Pt states understanding Yellow emergency card updated. Worker met with pt for annual comprehensive clinic visit. Pt with Von Willebrand Disease in attendance with her son. 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 Employment/Financial Concerns: denied Patient Coping/Stress Concerns Sources of support: spouse, both parents, alevism, son Identified strengths: traveling, swimming, riding bike, fishing, knitting Stressors: none reported National Bleeding Disorder Chapter Chapter membership: to be enrolled Medical ID: wears for travel/biking Wellness: discussed Mental Health: discussed Medical team considerations: None identified SW Interventions/Recommendations SW will continue to remain available to provide assistance and support as needed documented in this encounter [facility] 02-03-2025 History of Presen t illness Narrative Have you had any s/s of bleeding? (nosebleeds, gums when brushing or flossing, stool/urine): None Any planned procedures/dental work? : None Periods- duration, products #/hr, flow: Not having. Hysterectomy Refills needed?: None Patient seen by pharmacist today in conjunction with multidisciplinary team. Pt w/ VWD type 2N. Stimate Challenge? No, per Dr Cheung DAAVChela IV and IN, presumed previous use of factor product, presumes no response to DDAVP Thrombotic risk History of thrombosis? no CV risk: The ASCVD Risk score (Mayur DODSON, et al., 2019) failed to calculate for the following reasons: Cannot find a previous HDL lab Cannot find a previous total cholesterol lab Tobacco Use: Medium Risk (02/03/2025) Patient History Smoking Tobacco Use: Former Smokeless Tobacco Use: Never Passive Exposure: Not on file Insurance: [facility] (preferred by insurance): [facility] 02/03/25 Disorder: VWD Treatment: TXA PRN Medications Tried:None Any adverse effects? N/A Self infuse? no Treatment type: on demand Adherence? N/A Bleeding history: ISTH-BAT 7; gum bleeding, bleeding with procedures, easy bruising, nosebleeds Bleeding in the last 3 months? none Admissions related to bleeding disorder since last visit: No Upcoming procedures? No Procedure history: none since last visit Upcoming high bleed risk activities? No Doses remaining at home: yes Refill needed? No Other concerns: none Current weight: Wt Readings from Last 1 Encounters: 02/03/25 100.7 kg (222 lb) [place] [address] body weight: 59.3 kg (130 lb 11.7 oz) Adjusted ideal body weight: 75.9 kg (167 lb 3.8 oz) Treatment adequate to control bleeding? yes Considerations for treatment adjustment: None PLAN Continue Lysteda PRN Problem list updated with current emergency plan Defer to Dr. Harrison s note for full therapy plan. The following clinical intervention(s) beyond standard practice occurred during today s visit: Provided therapy recommendations or management for safe and effective medication use Hematology Clinic Hemostasis and Thrombosis ID: 44 yo F with bleeding diathesis most likely R/O compound heterozygous of 2N autosomal recessive disease and other form of quantitative disorder, in clinic for follow up. DISEASE HISTORY: 1. R/O von Willebrand 2N spectrum disorder (presumed compound heterozygous 2N w/ mild quantitative disorder or blood type O low VW) vs. 2N Carrier + Bleeding diathesis NOS. -History: Workup prompted at age 11, following prolonged bleeding after nose contusion (Bleeding x 5 hours) -Blood Type: O -ISTH-BAT: 7 (12/2021), although may be falsely decreased as all of her procedures have been done under DDAVP +/- factor replacement -Bleeding history: *Epistaxis (-), Bleeding oral hygiene: Brushing (+), Flossing (+). Bleeding on minor dental procedures/dentist comments in regards of bleeding (+) *Easy Bruising (+) <5 times / >1 cm, spontaneous 20%, Bleeding minor wounds (+) > 10 minutes *Surgeries/Procedures: -Reconstructive nose surgery (age 11) --> Minor bleeding (but patient presumes something was given to prevent bleeding). -[place]ocoa teeth extraction (2004) --> No bleeding (states received factor VIII) -Laparoscopic endometriosis resection (1996) --> States minor prolonged bleeding/healing from umbilical insertion. No special precautions. States episode of oozing/bleeding in between 1998 -2001 from laparoscopic insertion points x 3 for endometriosis (duering a period of 2-4 months). -Hematuria (9543-2565) --> unclear etiology. As per patient cystoscopy negative for specific etiology (had minor postprocedure bleeding, no special precautions taken). -Partial Hysterecotmy (2008) for menorrhagia/endometriosis, no records --> No bleeding (managed with infusion pre/post procedure, unclear). -Right ovarian cyst bleed w/ resection (2015), no records --> Controlled on medication plan for 6 weeks (unclear) -Laparoscopic Cholecystectomy () --> no bleeding complicaitons, only s/p TXA +TXA x 5 days (no bleeding complications an adequate healing), no delay bleeding from trocar insertion points. *Obstetrics/Gynecology -Menarche at age 9 (Bleeding for 14 days, 10 days of heavy bleeding changing pads Q 2-3H). Attempted OCPs (at age 17), failure to improve. Had history of associated ELYSE - x 1 (2008) --> No bleeding complications, states was given infusion (unclear) previous and after procedure. Had a medication (possibly hemostatic) plan for up to 6 weeks after delivery (unclear) *DDAVP Challenge: No records *Family History: Mother (Radha Gordon, ) with bleeding diathesis (possible type 2N Disease homozygous as has undetectable 2N Binding assay as has lower FVIII but high VWAg and activity or has concomitant hemophilia carrier status) *Medication: DAAVP IV and IN, presumed previous use of factor product, presumes no response to DDAVP. *Blood Products: None *Workup: -1992: 02/1993: FVIII=70%, Normal Multimer Analysis, 03/1993: vWD Ag=59%, 08/1992: Ristocetin=54%, Antigen=60%, FVIII=72% -09/2003: PFA 100 (Abnormal) with prolongation of C/E and C/A, FVIII=76%, vWD Ag=55%, Multimer Analysis (all decreased), Ristocetin=48%. -11/2003: Normalized PFA-100, FVIII=67%, vWD=64%, Ristocetin=32% -2007: VWD Ag=59, Ristocetin=52% FVIII=50%, Normal multimer analysis. Normal PFA-100, Mild prolongation of PTT (34.7-36) -06/2021 (while acute cholecystitis): RWKXH=125, Gljvkwpixm=201, Eaqwndc=020 -12/2021: Eziqzmkuln=528, FJF=319%, PFA C/E and C/A prolonged. Normal Multimer Analysis, FVIII=68%, Ristocetin=70, vWAg=65 (activity higher than antigen, questionable) -01/2022: Platelet aggregation (w/o secretion studies) --> Normal, VWAg=83, Ristocetin=85, FVIII=74%, FXIII=90% -12/2022: PFA (Normal C/E and Prolonged C/A, unspecific), Versiti 2N Panel: vWAg=60, FVIII=67 (Ref>71), 2N Binding=58 (Ref>86), compatible at least with 2N carrier status -04/2024: Qd7VL=14 (ristocetin=82), FVIII=94 (Chromogenic=85), vWAg=93. vWF genetic testing showing c.2561 G>A (Heterozygous/Pathogenic) and absence of c.4414 G>C. INTERVAL HISTORY: -No bleeding events Past Medical History: Diagnosis Date Anemia Bleeding disorder Endometritis 07/31/1997 VWD (von Willebrand's disease) 07/31/1991 unconfirmed per pt Past Surgical History: Procedure Laterality Date CHOLECYSTECTOMY LAPAROSCOPIC N/A 07/06/2021 Laterality: N/A; Surgeon: Aamir Ricci MD; Location: [facility] MAIN OR OOPHORECTOMY LAPAROSCOPIC Right 07/31/2010 HYSTERECTOMY 07/31/2009 SECTION 06/15/2009 [place] ENDOMETRIAL CRYOABLATION W/US & ENDOMETRIAL CR Bilateral 07/31/2003 x4 procedures RECONSTRUCTION NASAL 07/31/1991 Family History Problem Relation Age of Onset Other - Specify Mother bleeding disorder Cancer- Other Mother cervical GI Disease Mother Dysrhythmia Mother Seizures/Epilepsy Mother Diabetes Father Emphysema Father Other - Specify Father degenerative disk disorders Other - Specify Brother degenerative disk disease Uterine Cancer Maternal Grandmother Lung Cancer Maternal Grandmother Thyroid Disease Paternal Grandmother Other - Specify Paternal Grandmother degenerative disk disease Diabetes Paternal Grandfather Myocardial Infarction Paternal Grandfather Social History Tobacco Use Smoking status: Former Current packs/day: 0.00 Average packs/day: 0.5 packs/day for 6.0 years (3.0 ttl pk-yrs) Types: Cigarettes Start date: 07/31/2001 Quit date: 07/31/2007 Years since quittin.5 Smokeless tobacco: Never Substance Use Topics Alcohol use: Never Drug use: Never Review of Systems Constitutional: Negative. HENT: Negative. Eyes: Negative. Cardiovascular: Negative. Respiratory: Negative. Endocrine: Negative. Hematologic/Lymphatic: Negative. Skin: Negative. Musculoskeletal: Negative. Gastrointestinal: Negative. Genitourinary: Negative. Neurological: Negative. Psychiatric/Behavioral: Negative. Outpatient Medications Prior to Visit Medication Sig Dispense Refill tranexamic acid 650 MG tablet Take 2 tablets by mouth every 8 hours as needed. Take 2 pills if bleeding, can continue every 8 hours up to 2 days (in total 12 pills) 60 tablet 3 No facility-administered medications prior to visit. PHYSICAL EXAM: Vitals: 02/03/25 1446 BP: 161/73 Pulse: 73 Resp: 18 Temp: 97.6 degrees F (36.4 degrees C) TempSrc: Oral SpO2: 98% Weight: 100.7 kg (222 lb) Height: 1.676 m (5' 6) Physical Exam Constitutional: Appearance: Normal appearance. HENT: Head: Atraumatic. Eyes: Extraocular Movements: Extraocular movements intact. Cardiovascular: Rate and Rhythm: Normal rate and regular rhythm. Pulmonary: Effort: Pulmonary effort is normal. Abdominal: Palpations: Abdomen is soft. Musculoskeletal: Cervical back: Neck supple. Right lower leg: No edema. Left lower leg: No edema. Neurological: Mental Status: She is oriented to person, place, and time. Mental status is at baseline. Psychiatric: Mood and Affect: Mood normal. Behavior: Behavior normal. ASSESSMENT AND PLAN: 44 yo F with bleeding diathesis most likely R/O compound heterozygous of 2N autosomal recessive disease and other form of quantitative disorder, in clinic for follow up. Patient has a mild bleeding diathesis characterized by easy bruising, prolonged bleeding from minor wounds, menorrhagia and delay bleeding/wound healing from procedures. Patient has a former diagnosis of wWD Type 1 and patient's mother has the diagnosis of most likely 2N (has undetectable 2N binding but normal VWD antigen/activity which may suggest homozygous for 2N disease or heterozygous + congenital FVIII deficeincy). Mother has never undergone genetic testing. Patient ISTH-BAT is 7 (but may be falsely over estimated as has received support for all her procedures, although details of products used are unclear. Has remote laboratories supporting the diagnosis (2003) with a mildly low antigen and activity levels (by ristocetin and in the absence of c.4414 G>C which may denote correlation with Gp1BM), although questionable as ratio activity/antigen was really discordant in comparison to later testing, although at the time had a multimer analysis with decrease of all sizes by multimer (which will be compatible with what could be found on a type 1 disorder, type 2N or 2M). Classically in the [place] type 2N spectrum disorders with bleeding are a compound heterozygosity from a Type 1 gene and a type 2N, rather the variant in which patient had two 2N mutations which may be situation of the mother). Also, patient states problems with wound healing (as well as delay bleeding from wounds but normal FXIII functional assay). Denies hypermobile features. Has normal FXIII and platelet aggregation studies Recommendations: 1) vWD [facility] Panel for baseline at the institution +/- Fibrinogen +/- PT/PTT 2) Tranexamic acid 1300mg PO Q8H as needed for bleeding 3) F/U 1 year Dangelo Catalan MD Hematology, Hemostasis and Thrombosis Clinical Coordinator introduces self to patient and explains role and functioning of [facility]. Discussed with patient that [facility] requires a minimal 2 week notice for all non-emergent procedures including dental. Reviewed that anytime pt has a bleed/infuses factor [facility] requests to be notified. Pt states understanding Yellow emergency card updated. Worker met with pt for annual comprehensive clinic visit. Pt with Von Willebrand Disease in attendance with her son. 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 SW will continue to remain available to provide assistance and support as needed. documented in this encounter [facility] 02-03-2025 Instructions Inessa Hermosillo RN - 02/03/2025 2:30 PM EDT Follow up in 1 year for an [facility] Comprehensive appointment with Dr. Harrison on a Monday . Get labs drawn today prior to leaving the office. We will call/my chart message you regarding the results. [facility] Your Team: Providers: Dr. Dangelo Catalan; Yumiko Dexter CNP; Zohreh Bernstein PA-C Primary Clinic Nurse: Inessa Associate Clinic Nurse: Tyrone Clinical Nurse Coordinators: Barbara Whyte Pharmacists: Roma Castelan and Paula Harmon Physical Therapist: Sidra Belle Vice President Media Relations: Isaura Gracia Data/Research Coordinator: Orly Celis After Hours General Instructions Medication Refill Requests: For safety and accuracy reasons, [facility] will no longer be able to accept refill requests directly from the pharmacy. If you have no refills left at the pharamacy please contact our office via payasUgym or phone at [phone] to request a refill be sent to your pharmacy. As always please allow up to 1 week for all medication refills. Paperwork Please allow 2 weeks to complete all paperwork including but not limited to disability, FMLA, and insurance paperwork. Please clarify what to do once they are completed, including any fax numbers or addresses needed. [facility] [employer] is a secure way to get access to ask non-urgent questions and access your lab results online. Your message will be responded to within 2 business days. For questions or concerns regarding [employer] access or technical difficulties, please call [phone] or toll free at . Appointment's/ No show visits If you arrive late to your scheduled appointment, you may be asked to reschedule your visit. Please call [phone] at least 24 hours in advance if you are not able to make it to your scheduled visit. If you have three no show visits within one year, you will be discharged from our practice. Patient Instructions: Von Willebrand Disease General Instructions Please download and use the [employer] sam to keep a log of bleeding episodes and treatment or Factor infusions. Bring the record to every visit with the alarm mechanism adjuster. Bleeding episode logs aid in diagnosis and treatment of Hemophilia. For non-emergent questions or issues during business hours please call the Hemostasis and Thrombosis Center (HTC) at [phone]. For any of the following, please notify the Bleeding [facility] Clotting Disorder Center ([facility]) Nurses during normal business hours (M-F 8am-5pm) at [phone]; if after normal business hours, notify the Hematology triage line at [phone] and ask for the alarm mechanism adjuster it communications specialist: Any signs or symptoms of a bleeding episode: including prolonged bleeding after injury or surgery; joint or muscle pain; swelling; redness at site; oral or nose bleeding; heavy menstrual bleeding. Any time you use factor or think you may need to use factor. Serious bleeds require immediate physician assessment: For any of the following, please proceed to the emergency department (ED) for assessment and then notify the DC at [phone]. Head trauma, concussion, eye injury, throat injury, blood in urine or stools, abdominal injury, groin bleed or injury, major trauma, car accident. Bleeding may occur spontaneously. Early treatment with Factor replacement will prevent complications. Emergency Department Locations and Instructions [facility] Emergency Department ([place]): [address] [address] Phone number: The [facility] Emergency Departments are currently unable to use/administer factor brought with you from home. The [facility] Emergency Department [place]: [address] [place] [address] Phone number: The [facility] Emergency Departments are currently unable to use/administer factor brought with you from home. Surgeries and Procedures: A minimum notice of two weeks is required prior to all surgeries or procedures. Inability to notify the [facility] in this time frame could result in the need to postpone/reschedule your upcoming surgery/procedure. Please notify the [facility] of ANY upcoming surgeries or procedures including dental and dermatological procedures. Pre-procedure and post-procedure treatment may be recommended. Completed recommendation letters will be provided to requesting provider s office approximately two weeks prior to procedure date. If you have not been seen in our office within the past year, we cannot legally provide any surgical clearance or medical recommendations. Travel: Please notify the [facility] of any upcoming travel plans that you may need a travel letter for. A minimum notice of two weeks is requested for all travel letters. Inability to notify the [facility] in this time frame could result in delays. The [facility] will be issuing travel letters to all patients at their comprehensive visits. If you did not receive one, please ask. Safety Measures: A medical alert is recommended for all patients diagnosed with a bleeding disorder to wear. Please notify your [facility] of your sports activity, especially high contact or collision sports. Please wear all recommended helmets and padding for sports activities, and hobbies. WATTS each joint/muscle bleed (protect, rest, ice, compress, elevate) Medications to Avoid with a Bleeding Disorder Aspirin and NSAIDs such as Ibuprofen (Advil, Motrin), Naproxen (Aleve) and Ketorolac (Toradol) can also increase bleeding symptoms. Please speak with your treatment team prior to taking any of these medications documented in this encounter [facility] 01-29-2025 Telephone encounter Note Worker attempted to contact pt regarding upcoming Hemostasis and Thrombosis Center clinic visit. Worker LM with appointment information and callback number in case of any concerns with this visit. 01/30 Pt returned call. States her phone does not receive voicemails, but home phone does. SW noted this in chart. Pt confirmed she will attend upcoming appointment. No additional needs reported. [facility] Miscellaneous Notes Worker attempted to contact pt regarding upcoming Hemostasis and Thrombosis Center clinic visit. Worker LM with appointment information and callback number in case of any concerns with this visit. 01/30 Pt returned call. States her phone does not receive voicemails, but home phone does. SW noted this in chart. Pt confirmed she will attend upcoming appointment. No additional needs reported. documented in this encounter [facility] 01-09-2023 History of Presen t illness Narrative Have you had any s/s of bleeding? (nosebleeds, gums when brushing or flossing, stool/urine): denies Any planned procedures/dental work? : denies Periods- duration, products #/hr, flow: hysterectomy Refills needed?: n/a Hematology Clinic Hemostasis and Thrombosis ID: 42 yo F with history of mild bleeding diathesis, mostly characterized by delay healing/delay postoperative bleeding and with a former diagnosis of VWD, presenting in clinic for follow up. DISEASE HISTORY: 1. Bleeding diathesis; remote diagnosis of VWD diagnosis (unclear) -History: Workup prompted at age 11, following prolonged bleeding after nose contusion (Bleeding x 5 hours) -Blood Type: O -ISTH-BAT: 7 (12/2021), although may be falsely decreased as all of her procedures have been done under DDAVP +/- factor replacement -Bleeding history: *Epistaxis (-), Bleeding oral hygiene: Brushing (+), Flossing (+). Bleeding on minor dental procedures/dentist comments in regards of bleeding (+) *Easy Bruising (+) <5 times / >1 cm, spontaneous 20%, Bleeding minor wounds (+) > 10 minutes *Surgeries/Procedures: -Reconstructive nose surgery (age 11) --> Minor bleeding (but patient presumes something was given to prevent bleeding). -[place]oa teeth extraction (2004) --> No bleeding (states received factor VIII) -Laparoscopic endometriosis resection (1996) --> States minor prolonged bleeding/healing from umbilical insertion. No special precautions. States episode of oozing/bleeding in between 1998 -2001 from laparoscopic insertion points x 3 for endometriosis (duering a period of 2-4 months). -Hematuria ([id number]) --> unclear etiology. As per patient cystoscopy negative for specific etiology (had minor postprocedure bleeding, no special precautions taken). -Partial Hysterecotmy (2008) for menorrhagia/endometriosis, no records --> No bleeding (managed with infusion pre/post procedure, unclear). -Right ovarian cyst bleed w/ resection (2015), no records --> Controlled on medication plan for 6 weeks (unclear) -Laparoscopic Cholecystectomy () --> no bleeding complicaitons, only s/p TXA +TXA x 5 days (no bleeding complications an adequate healing), no delay bleeding from trocar insertion points. *Obstetrics/Gynecology -Menarche at age 9 (Bleeding for 14 days, 10 days of heavy bleeding changing pads Q 2-3H). Attempted OCPs (at age 17), failure to improve. Had history of associated ELYSE - x 1 (2008) --> No bleeding complications, states was given infusion (unclear) previous and after procedure. Had a medication plan for up to 6 weeks after delivery (uncear) *DDAVP Challenge: No records *Family History: Mother with bleeding diathesis (Type 2N Disease) --> MNR: [id number] *Medication: DAAVP IV and IN, presumed previous use of factor product, presumes no response to DDAVP. *Blood Products: None *Workup: -1992: 02/1993: FVIII=70%, Normal Multimer Analysis, 03/1993: vWD Ag=59%, 08/1992: Ristocetin=54%, Antigen=60%, FVIII=72% -2003: 09/2003: PFA 100 (Abnormal) with prolongation of C/E and C/A, FVIII=76%, vWD Ag=55%, Multimer Analysis (all decreased), Ristocetin=48%. 11/2003: Normalized PFA-100, FVIII=67%, vWD=64%, Ristocetin=32% -2007: VWD Ag=59, Ristocetin=52% FVIII=50%, Normal multimer analysis. Normal PFA-100, Mild prolongation of PTT (34.7-36) -06/2021 (while acute cholecystitis): ADFEM=127, Kasxlbdlgh=629, Kiqtngg=646 -12/2021: Astpcfirbv=689, YYY=085%, PFA C/E and C/A prolonged. Normal Multimer Analysis, FVIII=68%, Ristocetin=70, vWAg=65 (activity higher than antigen, questionable) -01/2022: Platelet aggregation (w/o secretion studies) --> Normal, VWAg=83, Ristocetin=85, FVIII=74%, FXIII=90% INTERVAL HISTORY: -No bleeding events Past Medical History: Diagnosis Date Anemia Bleeding disorder Endometritis 07/31/1997 VWD (von Willebrand's disease) 07/31/1991 unconfirmed per pt Past Surgical History: Procedure Laterality Date CHOLECYSTECTOMY LAPAROSCOPIC N/A 07/06/2021 Laterality: N/A; Surgeon: Aamir Ricci MD; Location: [facility] OOPHORECTOMY LAPAROSCOPIC Right 07/31/2010 HYSTERECTOMY 07/31/2009 SECTION 06/15/2009 [place] ENDOMETRIAL CRYOABLATION Bilateral 07/31/2003 x4 procedures RECONSTRUCTION NASAL 07/31/1991 Family History Problem Relation Age of Onset Other - Specify Mother bleeding disorder Cancer- Other Mother cervical GI Disease Mother Dysrhythmia Mother Seizures/Epilepsy Mother Diabetes Father Emphysema Father Other - Specify Father degenerative disk disorders Other - Specify Brother degenerative disk disease Uterine Cancer Maternal Grandmother Lung Cancer Maternal Grandmother Thyroid Disease Paternal Grandmother Other - Specify Paternal Grandmother degenerative disk disease Diabetes Paternal Grandfather Myocardial Infarction Paternal Grandfather Social History Tobacco Use Smoking status: Former Packs/day: 0.50 Years: 6.00 Total pack years: 3.00 Types: Cigarettes Start date: 07/31/2001 Quit date: 07/31/2007 Years since quittin.4 Smokeless tobacco: Never Substance Use Topics Alcohol use: Never Drug use: Never Review of Systems Constitutional: Negative. HENT: Negative. Eyes: Negative. Cardiovascular: Negative. Respiratory: Negative. Endocrine: Negative. Hematologic/Lymphatic: Negative. Skin: Negative. Musculoskeletal: Negative. Genitourinary: Negative. Neurological: Negative. Psychiatric/Behavioral: Negative. No outpatient medications prior to visit. No facility-administered medications prior to visit. PHYSICAL EXAM: Vitals: 01/09/23 1125 BP: 135/75 Pulse: 60 Resp: 16 Temp: 98 degrees F (36.7 degrees C) SpO2: 97% Weight: 100.2 kg (221 lb) Height: 1.676 m (5' 6) Physical Exam Constitutional: Appearance: Normal appearance. She is obese. Eyes: Extraocular Movements: Extraocular movements intact. Cardiovascular: Rate and Rhythm: Normal rate and regular rhythm. Pulmonary: Effort: Pulmonary effort is normal. Breath sounds: Normal breath sounds. Abdominal: Palpations: Abdomen is soft. Musculoskeletal: Cervical back: Normal range of motion. Neurological: Mental Status: She is oriented to person, place, and time. Psychiatric: Behavior: Behavior normal. ASSESSMENT AND PLAN: 42 yo F with mild bleeding diathesis characterized by easy bruising, prolonged bleeding from minor wounds, menorrhagia and delay bleeding/wound healing from procedures. Patient has a former diagnosis of wWD Type 1 and patient's mother has the diagnosis of vWD Type 2N. Patient presenting in clinic for follow up. Patient ISTH-BAT is 7 (but may be falsely decreased as has received support for all her procedures, although details of products used are unclear. Has remote laboratories supporting the diagnosis (2003) with a mildly low antigen and activity levels (by ristocetin), although questionable as ratio activity/antigen was really discordant in comparison to later testing, although at the time had a multimer analysis with decrease of all sizes by multimer (which will be compatible with what could be found on a type 1 disorder). Mother has a type 2N disorder (but classically in the [place] type 2N disorders are a compound heterozygosity from a Type 1 gene and a type 2N, rather the variant in which patient had two 2N mutations), so she must have inherited the Type 1 variant altough FVIII levels have been borderline low on recent testing. Also, patient states problems with wound healing (as well as delay bleeding from wounds). Denies hypermobile features. At this point point and based on laboratories patient could have a vWD diagnosis (most likely quantitative, as most of normal results don't show discordance in the activity/antigen ratio as well as a symmetric decrease in all multimers on one time multimer analysis). Her consequent testing showed improved vWD laboratories and normalization of multimer. Is also possible that patient has inherited the 2N portion of her mothers disease and has a heterozygous 2N disorder (explaining why bleeding is not that severe) Recommendations: 1) Type 2N profile (send out versiti) 2) PFA 3) Tranexamic acid 1300mg PO Q8H as needed for bleeding 4) F/U 1 year Dangelo Catalan MD Hematology, Hemostasis and Thrombosis Worker met with pt for annual comprehensive clinic visit. She was present with her mother to this appointment. Worker discussed new [facility] local chapter benefits and provided upcoming events calendar. Pt was actively wearing her MedicAlert and would like a replacement ID. Worker to submit order form on her behalf. 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 documented in this encounter [facility] 01-09-2023 Instructions Alice Blake RN - 01/09/2023 11:30 AM EDT Rto 1 year video Monday AV LABS Provider: Dr. Dangelo Catalan Primary Nurse: Alice Associate Nurse: Mariah IMPORTANT: SURGICAL CLEARANCE: We MUST receive 2 WEEKS notice prior to any dental procedures, births, surgeries, and other procedures for Hematology clearance from our office. If you have not been seen by our office in over a year we cannot legally provide clearance. Failure to provide sufficient notice of at least two weeks prior may result in your surgery or procedure being delayed. Don't wait, communicate! Call [phone] and let our office know about what the procedure is for and where to send the clearance to as soon as you are aware. Thank you. Medication refills Please allow 1 week for all medication refills. You may request refills via [employer] or by calling [phone]. Paperwork Please allow 2 weeks to complete disability, FMLA, and insurance paperwork. Please clarify what to do once they are completed, including any fax numbers or addresses needed. [facility] [employer] is a secure way to get access to your labs online. Once you're online, you may need to send a message to the office to release results so that you can review the results of your blood tests. For non-emergent concerns, please send us a [employer] message but describe your issue fully. As an example, tell us how long you've had the symptom, what makes it better or worse, what you've done for it already) and one of our nurses or nurse practitioners will respond benson. For questions or concerns regarding [employer] access or technical dificulties, please call [phone] or toll free at . Appointment's/ No show visits If you arrive late to your scheduled appointment, you may be asked to reschedule your visit. Please call [phone] at least 24 hours in advance if you are not able to make it to your scheduled visit. If you have three no show visit's within one year, you will be discharged from our practice. documented in this encounter [facility] 12-30-2021 History of Presen t illness Narrative Hematology Clinic Hemostasis and Thrombosis ID: 41 yo F with history of mild bleeding diathesis, mostly characterized by delay healing/delay postoperative bleeding and with a former diagnosis of VWD, presenting in clinic for follow up. DISEASE HISTORY: 1. Bleeding diathesis; remote diagnosis of VWD diagnosis (unclear) -History: Workup prompted at age 11, following prolonged bleeding after nose contusion (Bleeding x 5 hours) -Blood Type: O -ISTH-BAT: 7 (12/2021), although may be falsely decreased as all of her procedures have been done under DDAVP +/- factor replacement -Bleeding history: *Epistaxis (-), Bleeding oral hygiene: Brushing (+), Flossing (+). Bleeding on minor dental procedures/dentist comments in regards of bleeding (+) *Easy Bruising (+) <5 times / >1 cm, spontaneous 20%, Bleeding minor wounds (+) > 10 minutes *Surgeries/Procedures: -Reconstructive nose surgery (age 11) --> Minor bleeding (but patient presumes something was given to prevent bleeding). -[place] teeth extraction (2004) --> No bleeding (states received factor VIII) -Laparoscopic endometriosis resection (1996) --> States minor prolonged bleeding/healing from umbilical insertion. No special precautions. States episode of oozing/bleeding in between 1998 -2001 from laparoscopic insertion points x 3 for endometriosis (duering a period of 2-4 months). -Hematuria (8159-2051) --> unclear etiology. As per patient cystoscopy negative for specific etiology (had minor postprocedure bleeding, no special precautions taken). -Partial Hysterecotmy (2008) for menorrhagia/endometriosis, no records --> No bleeding (managed with infusion pre/post procedure, unclear). -Right ovarian cyst bleed w/ resection (2015), no records --> Controlled on medication plan for 6 weeks (unclear) -Laparoscopic Cholecystectomy () --> no bleeding complicaitons, only s/p TXA +TXA x 5 days (no bleeding complications an adequate healing), no delay bleeding from trocar insertion points *Obstetrics/Gynecology -Menarche at age 9 (Bleeding for 14 days, 10 days of heavy bleeding changing pads Q 2-3H). Attempted OCPs (at age 17), failure to improve. Had history of associated ELYSE - x 1 (2008) --> No bleeding complications, states was given infusion (unclear) previous and after procedure. Had a medication plan for up to 6 weeks after delivery (uncear) *DDAVP Challenge: No records *Family History: Mother with bleeding diathesis (Type 2N Disease) *Medication: DAAVP IV and IN, presumed previous use of factor product *Blood Products: None *Workup: -1992: 02/1993: FVIII=70%, Normal Multimer Analysis, 03/1993: vWD Ag=59%, 08/1992: Ristocetin=54%, Antigen=60%, FVIII=72% -2003: 09/2003: PFA 100 (Abnormal) with prolongation of C/E and C/A, FVIII=76%, vWD Ag=55%, Multimer Analysis (all decreased), Ristocetin=48%. 11/2003: Normalized PFA-100, FVIII=67%, vWD=64%, Ristocetin=32% -2007: VWD Ag=59, Ristocetin=52% FVIII=50%, Normal multimer analysis. Normal PFA-100, mild Prolongation of PTT (34.7-36) -06/2021 (while acute cholecystitis): EFGHL=572, Wwxaurdyjv=711, Zaiudvo=307 INTERVAL HISTORY: -States appropriate healing from surgical incisions while on TXA, no delayed bleeding Past Medical History: Diagnosis Date Anemia Bleeding disorder Endometritis 07/31/1997 VWD (von Willebrand's disease) 07/31/1991 unconfirmed per pt Past Surgical History: Procedure Laterality Date CHOLECYSTECTOMY LAPAROSCOPIC N/A 07/06/2021 Laterality: N/A; Surgeon: Aamir Ricci MD; Location: [facility] MAIN OR OOPHORECTOMY LAPAROSCOPIC Right 07/31/2010 HYSTERECTOMY 07/31/2009 SECTION 06/15/2009 [place] ENDOMETRIAL CRYOABLATION Bilateral 07/31/2003 x4 procedures RECONSTRUCTION NASAL 07/31/1991 Family History Problem Relation Age of Onset Other - Specify Mother bleeding disorder Cancer- Other Mother cervical GI Disease Mother Dysrhythmia Mother Seizures/Epilepsy Mother Diabetes Father Emphysema Father Other - Specify Father degenerative disk disorders Other - Specify Brother degenerative disk disease Uterine Cancer Maternal Grandmother Lung Cancer Maternal Grandmother Thyroid Disease Paternal Grandmother Other - Specify Paternal Grandmother degenerative disk disease Diabetes Paternal Grandfather Myocardial Infarction Paternal Grandfather Social History Tobacco Use Smoking status: Former Smoker Packs/day: 0.50 Years: 6.00 Pack years: 3.00 Types: Cigarettes Start date: 07/31/2001 Quit date: 07/31/2007 Years since quittin.4 Smokeless tobacco: Never Used Substance Use Topics Alcohol use: Never Drug use: Never Review of Systems Constitutional: Negative. HENT: Negative. Eyes: Negative. Cardiovascular: Negative. Respiratory: Negative. Endocrine: Negative. Hematologic/Lymphatic: Negative. Skin: Negative. Musculoskeletal: Negative. Genitourinary: Negative. Neurological: Negative. Psychiatric/Behavioral: Negative. No outpatient medications prior to visit. No facility-administered medications prior to visit. PHYSICAL EXAM: Vitals: 12/30/21 1407 BP: 144/63 Pulse: 62 Resp: 20 Temp: 98.6 degrees F (37 degrees C) TempSrc: Oral SpO2: 98% Weight: 95.3 kg (210 lb) Physical Exam Constitutional: Appearance: Normal appearance. She is obese. Eyes: Extraocular Movements: Extraocular movements intact. Cardiovascular: Rate and Rhythm: Normal rate and regular rhythm. Pulmonary: Effort: Pulmonary effort is normal. Breath sounds: Normal breath sounds. Abdominal: Palpations: Abdomen is soft. Musculoskeletal: Cervical back: Normal range of motion. Neurological: Mental Status: She is oriented to person, place, and time. Psychiatric: Behavior: Behavior normal. ASSESSMENT AND PLAN: 41 yo F with mild bleeding diathesis characterized by easy bruising, prolonged bleeding from minor wounds, menorrhagia and delay bleeding/wound healing from procedures. Patient has a former diagnosis of wWD Type 1 and patient's mother has the diagnosis of vWD Type 2N. Patient presenting in clinic for follow up. Patient ISTH-BAT is 7 (but may be falsely decreased as has received support for all her procedures, although details of products used are unclear. Has remote laboratories supporting the diagnosis (2003) with a mildly low antigen and activity levels (by ristocetin), although questionable as ratio activity/antigen was really discordant in comparison to other opportunities, although at the time had a multimer analysis with decrease of all sizes by multimer (which will be compatible with what could be found on a type 1 disorder). Mother has a type 2N disorder (but classically in the [place] type 2N disorders are a compound heterozygosity from a Type 1 gene and a type 2N, rather the variant in which patient had two 2N mutations), so she must have inherited the Type 1 variant. Also, patient states problems with wound healing (as well as delay bleeding from wounds). Denies hypermobile features. At this point point and based on laboratories patient could have a vWD diagnosis (most likely quantitative, as most of normal results don't show discordance in the activity/antigen ratio as well as a symmetric decrease in all mul timers on one time multimer analysis). We will need to obtain laboratories at baseline (altough as patient has a partial hysterectomy we can't know if testing is performed on the equivalent of her weeks of menstrual period, which would be ideal). If not found another etiology. Factor eleven deficiency and FXIII may also produce delay bleeding, unlikely as previously normal PTTs (for XI) and due to normal PT/PTTs factor XIII should be also tested. Recommendations: 1) CBC + Iron Panel/Ferritin 2) PFA-100 + Von Willebrand panel/FVIII/Multimer + PT/PTT + ABO + FXIII 3) If workup normal, we will requiere to workup for Platelet Aggregation Studies + Factor XIII and repeat EHR137 (under controlled conditions). We will workup Type 2N disease on mother, and if Type 1 gene found we may attemp to find same gene on daughter (so this will strength the diagnosis of VWD). 4) For her mild bleeding phentype, we may proceed for procedures with TXA rather than DDAVP or Factor. Dangelo Catalan MD Hematology, Hemostasis and Thrombosis Have you had any s/s of bleeding? (nosebleeds, gums when brushing or flossing, stool/urine): no Any planned procedures/dental work? : no Periods- duration, products #/hr, flow: hysterectomy Refills needed?: no Worker met with pt, who was also in attendance with mother, also a patient here today for comprehensive clinic visit. 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 She denied any financial concerns. Worker discussed chapter resources and pt is interested in being added to their mailing list. Pt expressed interest in receiving a MedicAlert once her Dx is confirmed. Worker noted style and size and will submit order form following labwork. No additional needs reported. documented in this encounter [facility] 12-30-2021 Instructions Alice Blake RN - 12/30/2021 2:09 PM EDT AV LABS RTO 1 year MONDAY Provider: Dr. Dangelo Catalan Primary Nurses: Olu IMPORTANT: SURGICAL CLEARANCE! We MUST receive 2 WEEKS notice prior to any dental procedures, births, surgeries, and other procedures for Hematology clearance from our office. If you have not been seen by our office in over a year we cannot legally provide clearance. Failure to provide sufficient notice of at least two weeks prior may result in your surgery or procedure being delayed. Don't wait, communicate!! Call [phone] and let our office know about what the procedure is for and where to send the clearance to as soon as you are aware. Thank you!!! Medication refills Please allow 1 week for all medication refills. You may request refills via [employer] or by calling [phone]. Paperwork Please allow 2 weeks to complete disability, FMLA, and insurance paperwork. Please clarify what to do once they are completed, including any fax numbers or addresses needed. [facility] [employer] is a secure way to get access to your labs online. Once you're online, you may need to send a message to the office to release results so that you can review the results of your blood tests. For non-emergent concerns, please send us a [employer] message but describe your issue fully. As an example, tell us how long you've had the symptom, what makes it better or worse, what you've done for it already) and one of our nurses or nurse practitioners will respond benson. For questions or concerns regarding [employer] access or technical dificulties, please call [phone] or toll free at . Appointment's/ No show visits If you arrive late to your scheduled appointment, you may be asked to reschedule your visit. Please call [phone] at least 24 hours in advance if you are not able to make it to your scheduled visit. If you have three no show visit's within one year, you will be discharged from our practice. documented in this encounter [facility] Evaluation note Diagnosis Hemorrhagic diarrhea- Primary Diarrhea Hemorrhagic diathesis Unspecified hemorrhagic conditions [facility] information available [facility] Work Phone: Evaluation note* Diagnosis Von Willebrand disease- Primary Von Willebrand's disease [facility] Diagnosis Von Willebrand disease- Primary Von Willebrand's disease Von willebrand disease, type 1 [facility] Diagnosis Von Willebrand disease- Primary Von Willebrand's disease Von willebrand disease, type 1 [facility] Diagnosis Von willebrand disease, type 1 Hemorrhagic diathesis Unspecified hemorrhagic conditions documented in this encounter [facility] Summary Purpose Family History No Family History Records FoundNo Family History Records FoundNo Family History Records Found Advance Directives No Advanced Directives Records FoundLatest Code Status on File Code Status Date Activated Date Inactivated Comments Full Code 07/05/2021 8:20 PM Advance Directive Response Recorded Date/ Time Living Will No July 04 3:05am Power of Direct Service Worker No July 04, 2021 3:05am Latest Code Status on File Code Status Date Activated Date Inactivated Comments Full Code 07/05/2021 8:20 PM Date Activated Date Inactivated Comments 07/05/2021 8:20 PM Chief Complaint and Reason for Visit Chief Complaint EORDER EORDER Additional Source Comments INFORMATION SOURCE (unrecogn ized section and content) DATE CREATED AUTHOR 01/19/2018 [facility] DATE CREATED AUTHOR AUTHOR'S ORGANIZ ATION 08/16/2022 [facility] DATE CREATED AUTHOR AUTHOR'S ORGANIZ ATION 06/01/2025 [facility] Source Comments (unrecognize d section and content) In the event this informatio n is protected by the Federal Confidentiality of Alcohol and Drug Abuse Patient Records regulations: The Federal rules restrict any use of the information to criminally investigate or prosecute any alcohol or drug abuse patient.[facility] the event this information is protected by the Federal Confidentiality of Alcohol and Drug Abuse Patient Records regulations: The Federal rules restrict any use of the information to criminally investigate or prosecute any alcohol or drug abuse patient.[facility] Reason for Visit (unrecogniz ed section and content) Reason Comments Follow-up Bleeding disorder Reason Comments Follow-up Hemorrhagic diathesi s Reason Onset Date Comments Other 01/29/2025 Reason Comments Follow-up Von Willebrand disea se Reason Comments Labs Only Care Teams (unrecognized sec tion and content) Developmental Mathematics Professor Relationship Specialty Start Date End Date Michael Wagner MD [address] [place], [place] [id number] PCP - General Family Medicine 08/02/19 Tania Scherer MD Internal Medicine 08/02/19 Dangelo Brooks MD [address] [place] [address] [address], [place] [id number] Break Out Worker Hematology 07/06/21 Team Status: Active Member Role Status Dates Dr. Lamberto Wagner MD Family Provider Active Dr. Lamberto Wagner MD Primary Care Provider Activ e Team Status: Inactive Member Role Status Dates Dr. Lamberto Wagner MD Primary Care Provider, Attending Provider, Referring Provider Active Team Status: Active Member Role Status Dates Dr. Lamberto Wagner MD Primary Care Provider, Attending Provider, Referring Provider Active Developmental Mathematics Professor Relationship Specialty Start Date End Date Michael Wagner MD [address] [place], [place] [id number] PCP - General Family Medicine 08/02/19 Tania Scherer MD [address] [place] [address] Internal Medicine 08/02/19 Dangelo Brooks MD [address] [place] [phone] Break Out Worker Hematology 07/06/21 Developmental Mathematics Professor Relationship Specialty Start Date End Date Michael Wagner MD PCP - General Family Medicine 08/02/19 Tania Scherer MD Internal Medicine 08/02/19 Dangelo Brooks MD [address] [place] [address] Break Out Worker Hematology 07/06/21 Developmental Mathematics Professor Relationship Specialty Start Date End Date Michael Wagner MD PCP - General Family Medicine 08/02/19 Tania Scherer MD Internal Medicine 08/02/19 Dangelo Brooks MD [address], [place] [address] Break Out Worker Hematology 07/06/21 Developmental Mathematics Professor Relationship Specialty Start Date End Date Michael Wagner MD PCP - General Family Medicine 08/02/19 Tania Scherer MD Internal Medicine 08/02/19 Dangelo Brooks MD [address] [facility] [address] [place] [address] Break Out Worker Hematology 07/06/21 Developmental Mathematics Professor Relationship Specialty Start Date End Date Michael Wagner MD PCP - General Family Medicine 08/02/19 Tania Scherer MD Internal Medicine 08/02/19 Dangelo Brooks MD Break Out Worker Hematology 07/06/21 Goals (unrecognized section and content) Goals may be documented in a n alternate sectionGoals may be documented in an alternate section FOR RECORDS PERTAINING TO PATIENTS WHO ARE OR HAVE BEEN ENROLLED IN A CHEMICAL DEPENDENCY/SUBSTANCEABUSE PROGRAM, SOME INFORMATION MAY BE OMITTED. This clinical summary was aggregated from multiple sources. Caution should be exercised in using it in the provision of clinical care. This summary normalizes information from multiple sources, and as a consequence, information in this document may materially change the coding, format and clinical context of patient data. In addition, data may be omitted in some cases. CLINICAL DECISIONS SHOULD BE BASED ON THE PRIMARY CLINICAL RECORDS. [employer] provides no warranty or guarantee of the accuracy or completeness of information in this document.
--- NOTE | 2025-07-26 14:15 | ED.VIS.GI ---
HPI HPI - GI History of Present Illness Chief Complaint: Abd Pain Informant: patient and spouse/S.O. Abdominal Pain/Flank Pain Onset: Today and Yesterday (Gradual onset yesterday afternoon) Timing: Intermittent Quality: Dull Location: RUQ and RLQ Current Severity: Mild Maximum Severity: Mild Worsened by: Nothing Relieved by: Nothing Nausea/Vomiting/Emesis GI Symptom: Positive for Nausea Severity: Mild Diarrhea/Melena/Hematochezia GI Symptom: Negative for Diarrhea, Melena or Hematochezia Associated Symptoms Associated Symptoms: Negative for Dysuria, Frequency, Hematuria or Urgency Narrative Narrative: 45-year-old female history of von Willebrand's. Prior hysterectomy, and prior laparotomies. States that she had right upper quadrant abdominal pain yesterday epigastric now it is more right lower quadrant. Has been having bowel movements. No diarrhea no melena. No dysuria or fever mild nausea no vomiting. No weight change. No trauma to her abdomen. Prior similar symptoms: No Recent Illness/Hospitalization: No PFSH PFSH Medical History (Updated 07/26/25 @ 16:[address] Alex Tuttle MD) Former smoker Acute cholecystitis Von Willebrand disease Home Medications ?Medication ?Instructions ?Recorded ?Last Taken ?Type No Known/Unobtainable [No Known 10/17/15 Unknown History Home Medications] Allergy/AdvReac Type Severity Reaction Status Date / Time codeine Allergy Hives Verified 07/26/25 13:40 acetaminophen (From Percocet) AdvReac Other Verified 07/26/25 13:40 morphine AdvReac Other Verified 07/26/25 13:40 oxycodone (From Percocet) AdvReac Other Verified 07/26/25 13:40 Surgical History (Updated 07/26/25 @ 15:17 by Lucina Link) History of cholecystectomy [place] teeth extracted History of History of rhinoplasty H/O hysterectomy for benign disease H/O hysterectomy for benign disease Social History Smoking Status: Never smoker ROS ROS ED ROS Narrative Nausea. Abdominal pain. Constitutional Constitutional ED: Denies chills or fever(s) ENT ENT ED: Denies ear pain Cardiovascular Cardiovascular: Denies chest pain Respiratory/Chest Respiratory/Chest: Denies cough or dyspnea Gastrointestinal Gastrointestinal: Reports abdominal pain and nausea; Denies constipation, diarrhea, melena or vomiting Genitourinary Genitourinary ED: Denies dysuria or hematuria Musculoskeletal Musculoskeletal: Denies arthralgias or back pain Integumentary Denies abscess Neurologic Neurologic: Denies headache(s) Psychiatric Psychiatric: Denies anxiety or depression Endocrine Endocrinology: Denies polydipsia or polyphagia Hematologic/Lymphatic Hematologic/Lymphatic: Denies easy bleeding, easy bruising or lymphadenopathy Allergic/Immunologic Allergic/Immunologic ED: Denies mouth swelling, tongue swelling or urticaria EXAM Physical Exam Narrative Exam Narrative: 45-year-old female sitting upright in bed vital signs stable afebrile no acute distress. Accompanied by believe her . H EENT exam pupils round reactive light. Moist mucous membranes. Neck nontender no JVD. Back nontender. Lungs clear to auscultation bilaterally. Heart regular rate and rhythm rate about 80 no murmur. Chest wall ribs nontender. Abdomen soft nondistended normal bowel sounds without peritoneal signs. No hernia or mass. No obstruction. Mild tenderness between the right upper and right lower quadrants higher up than McBurney's point. No hernia or mass. No obstruction. Normal bowel sounds. Moving all 4 extremities. Nontender no edema normal range of motion. Normal strength. Neurologically she is awake alert. Answering questions following commands. Const Vital Signs: 07/26/25 13:38 07/26/25 15:38 Temperature 98.4 F Temperature Source Oral Pulse Rate 81 77 Respiratory Rate 16 18 Blood Pressure 159/77 H Blood Pressure Mean 104 Pulse Ox 98 99 Oxygen Delivery Method Room Air Room Air MDM MDM MDM Narrative Medical decision making narrative: 45-year-old female right lower quadrant abdominal pain clinically I do not think but it is in the differential this might be an appendicitis versus right-sided diverticulitis versus other etiologies. CAT scan and labs to be obtained. Gross UA and the sample vials unremarkable. Patient does not want anything for pain or nausea at this time. Repeat exam around 3:50 PM. Patient's abdomen is benign. Where she is describing the pain is closer to the right upper quadrant on the right lower quadrant. Is not significantly reproducible. There is no distention or discoloration. She has had a prior cholecystectomy. There is no McBurney's point tenderness. We discussed her labs and UA. Just awaiting the CAT scan. They are comfortable being discharged home once the CAT scan returns as well as is unremarkable. CAT scan showed an umbilical and a left-sided abdominal hernia but no acute process causing her discomfort. No signs of appendicitis. Read by the radiologist. History & Record Review Discussion w/independent historian: Patient and Family Additional record(s) reviewed:: Prior outpatient record, Prior ED visit and Prior labs Lab Data Attestation: I reviewed the patient's lab results. Lab results narrative: CBC unremarkable white count 11.4 H&H is 16 and 48. Platelets 281. UA 5-10 red cells no nitrites no white cells only rare bacteria. Lipase normal at 37. Labs: Laboratory Results - last 24 hr 07/26/25 07/26/25 07/26/25 14:30 14:40 14:40 WBC Cancelled Corrected WBC Cancelled RBC Cancelled Hgb Cancelled Hct Cancelled MCV Cancelled MCH Cancelled MCHC Cancelled RDW Std Deviation Cancelled RDW Coeff of Vasquez Cancelled Plt Count Cancelled MPV Cancelled Immature Gran % (Auto) Cancelled Neut % (Auto) Cancelled Lymph % (Auto) Cancelled [place] % (Auto) Cancelled Eos % (Auto) Cancelled Baso % (Auto) Cancelled Absolute Neuts (auto) Cancelled Absolute Lymphs (auto) Cancelled Total Counted Cancelled Neutrophils % (Manual) Cancelled Band Neutrophils % Cancelled Lymphocytes % (Manual) Cancelled Monocytes % (Manual) Cancelled Eosinophils % (Manual) Cancelled Basophils % (Manual) Cancelled Metamyelocytes % Cancelled Myelocytes % Cancelled Promyelocytes % Cancelled Blast Cells % Cancelled Plasma Cell % (Manual) Cancelled Other Cells % Cancelled Nucleated RBC % Cancelled Nucleated RBCs/100 WBC Cancelled Differential Comment Cancelled Diff Path Review Cancelled Hypersegmented Neuts Cancelled Atypical Lymphocytes Cancelled Reactive Lymphocytes Cancelled Smudge Cells Cancelled Toxic Granulation Cancelled Toxic Vacuolation Cancelled Dohle Bodies Cancelled [place] Cancelled Platelet Estimate Cancelled Plt Morphology Comment Cancelled RBC Morphology Cancelled Cancelled Polychromasia Cancelled Hypochromasia Cancelled Basophilic Stippling Cancelled Anisocytosis Cancelled Microcytosis Cancelled Macrocytosis Cancelled Spherocytes Cancelled Sickle Cells Cancelled Target Cells Cancelled Tear Drop Cells Cancelled Ovalocytes Cancelled Stomatocytes Cancelled [place] Bodies Cancelled [place] Cells Cancelled Bite Cells Cancelled Crenated Cell Cancelled Acanthocytes (Spur) Cancelled Rouleaux Cancelled Schistocytes Cancelled Sodium 134 L Potassium TNP Chloride 101 Carbon Dioxide 20.5 Anion Gap 12 BUN 10 Creatinine 0.71 Estim Creat Clear Calc 115.62 Est GFR (MDRD) Non-Af 106 BUN/Creatinine Ratio 14.0 Glucose 105 H Calcium 9.0 Total Bilirubin 0.40 AST 36 H ALT 14 Alkaline Phosphatase 104 Total Protein 7.4 Albumin 3.8 Globulin 3.6 Albumin/Globulin Ratio 1.1 Lipase 37 Urine Color Straw Urine Clarity Clear Urine pH 7.0 Ur Specific [place] 1.005 Urine Protein Negative Urine Glucose (UA) Normal Urine Ketones Negative Urine Occult Blood 10 H Urine Nitrite Negative Urine Bilirubin Negative Urine Urobilinogen Normal Ur Leukocyte Esterase Negative Urine RBC 5-10 SEEN Urine WBC 0 SEEN Ur Squamous Epith Cells 0-5 SEEN Urine Bacteria RARE Urine Mucus 0 SEEN 07/26/25 15:06 WBC 11.4 H Corrected WBC RBC 5.49 H Hgb 16.8 H Hct 48.1 H MCV 87.6 MCH 30.6 MCHC 34.9 RDW Std Deviation 42.4 RDW Coeff of Vasquez 13.1 Plt Count 281 MPV 10.4 Immature Gran % (Auto) 0.600 Neut % (Auto) 67.6 Lymph % (Auto) 18.1 L [place] % (Auto) 10.2 H Eos % (Auto) 2.9 Baso % (Auto) 0.6 Absolute Neuts (auto) 7.7 Absolute Lymphs (auto) 2.07 Total Counted Neutrophils % (Manual) Band Neutrophils % Lymphocytes % (Manual) Monocytes % (Manual) Eosinophils % (Manual) Basophils % (Manual) Metamyelocytes % Myelocytes % Promyelocytes % Blast Cells % Plasma Cell % (Manual) Other Cells % Nucleated RBC % 0 Nucleated RBCs/100 WBC Differential Comment Diff Path Review Hypersegmented Neuts Atypical Lymphocytes Reactive Lymphocytes Smudge Cells Toxic Granulation Toxic Vacuolation Dohle Bodies [place] Platelet Estimate Plt Morphology Comment RBC Morphology Polychromasia Hypochromasia Basophilic Stippling Anisocytosis Microcytosis Macrocytosis Spherocytes Sickle Cells Target Cells Tear Drop Cells Ovalocytes Stomatocytes [place] Bodies [place] Cells Bite Cells Crenated Cell Acanthocytes (Spur) Rouleaux Schistocytes Sodium Potassium Chloride Carbon Dioxide Anion Gap BUN Creatinine Estim Creat Clear Calc Est GFR (MDRD) Non-Af BUN/Creatinine Ratio Glucose Calcium Total Bilirubin AST ALT Alkaline Phosphatase Total Protein Albumin Globulin Albumin/Globulin Ratio Lipase Urine Color Urine Clarity Urine pH Ur Specific [place] Urine Protein Urine Glucose (UA) Urine Ketones Urine Occult Blood Urine Nitrite Urine Bilirubin Urine Urobilinogen Ur Leukocyte Esterase Urine RBC Urine WBC Ur Squamous Epith Cells Urine Bacteria Urine Mucus Radiography Diagnostic Testing: Clinical Impression(s) from Imaging Studies Abdomen/Pelvis CT 07/26/25 14:08 IMPRESSION: 1. Small esophageal hiatal hernia. 2. Umbilical hernia containing fat. 3. Left-sided lower abdomen ventral hernia containing fat. 4. No obstructive uropathy. Reading [facility] Triage Chief Complaint: Abd Pain ED Provider: Alex Tuttle Dx/Rx/DC Orders Clinical Impression: Abdominal pain, History of von Willebrand disease Instructions: ED Abdominal Pain Unkn Cause Fem Prescriptions: No Action No Known Home Medications Primary Care Provider: Home Wagner Referrals: Home Wagner MD [Primary Care Provider, Family Practice] - 3-5 Days if not improving Activity Restrictions/Additional Instructions: Your labs look good. Abdominal CAT scan looks good also. Plenty of fluids. Motrin and Tylenol for any pain. Follow-up with your doctor if not improving return to the emergency department if you are feeling a lot worse. Print Language: German Disposition Disposition: Home, Self Care
[2025-07-26 14:56] LABS: Mucous, Urine 0 SEEN /hpf (<or=2+)
[2025-07-26 14:59] LABS: Color, Urine Straw (Yellow); Glucose, Dipstick Normal (Normal); Ketone-Dipstick Negative (Negative); Leukocyte Esterase-Dipstick Negative /ul (Negative); Nitrite-Dipstick Negative (Negative); Occult Blood-Urine 10 /ul (Negative); Protein-Dipstick Negative (Negative); Specific Gravity, Urine 1.005 (1.002-1.030); Urine Bilirubin Dipstick Negative (Negative)
[2025-07-26 15:10] LABS: Lipase 37 U/L (13-75)
[2025-07-26 15:10] LABS: Hematocrit 48.1 % (37-47); Hemoglobin 16.8 g/dL (12.0-15.0); Immature Granulocytes Count 0.070 X10^3/uL (0.0-0.0); Mean Corp Hgb Conc 34.9 g/dL (32-36); Mean Corpuscular Volume 87.6 fL (81-99); Mean Platelet Vol. 10.4 fl (6.2-12.0); NRBC Flagged by Analyzer 0 % (0-5); Platelet Count 281 K/mm3 (150-450); RBC Distribution Width CV 13.1 % (11.6-14.6); RBC Distribution Width SD 42.4 fl (35.1-43.9); Red Blood Count 5.49 M/mm3 (4.2-5.4); White Blood Count 11.4 K/mm3 (4.4-11.0)
[2025-07-26 15:11] LABS: Red Blood Cells-Urine 5-10 SEEN /hpf (0-5); Squamous Epithelial Cells - UA 0-5 SEEN /hpf (5-10)
[2025-07-26 15:38] VITALS: BP 159/77; PULSE 77; RESP 18; O2SAT 99
[2025-07-26 15:41] LABS: AST(SGOT) 36 U/L (<=31); Alanine Aminotransfer ALT/SGPT 14 U/L (<=34); Albumin, Serum 3.8 g/dL (3.5-5.0); Alkaline Phosphatase 104 U/L (35-104); Anion Gap 12 (7-18); BUN 10 mg/dL (4-19); BUN/Creat Ratio 14.0 RATIO (10-20); Calcium,Total 9.0 mg/dL (7.6-11.0); Carbon Dioxide 20.5 mmol/L (20.0-29.0); Chloride 101 mmol/L (96-106); Estimated Creatinine Clearance 115.62 ml/min (50-250); Globulin 3.6 g/dL (2.2-4.2); Glucose 105 mg/dL (70-99)
[2025-07-26 16:18] VITALS: BP 174/92; PULSE 82; RESP 18; TEMP 36.9; O2SAT 100
== END 2025-07-26 16:26 | disposition home or self-care (01) ==
PROVIDERS: Emergency Provider Emergency Medicine; PCP Family Medicine; Visit Provider Emergency Medicine
DX: R10.85 Abdominal pain of multiple sites (principal); D68.00 Von Willebrand disease, unspecified; Z90.710 Acquired absence of both cervix and uterus; Z87.891 Personal history of nicotine dependence; Z90.49 Acquired absence of other specified parts of digestive tract
CPT/HCPCS: 74177; 80053; 81001; 83690; 85025; 99283; Q9967; A4216